=== PATIENT | female | born 1950 | race Caucasian/White ===

== ENCOUNTER → 2020-09-02 09:07 | Outpatient (BNVA) | payer MEDICARE, SELFPAY | PROVIDERS: PCP Internal Medicine; Visit Provider Obstetrics & Gynecology ==

== ENCOUNTER 2020-10-24 09:35 | Outpatient (REF) | payer MEDICARE, OTHER, SELFPAY ==
--- NOTE | ~2020-10-24 | MM_ITS ---
EXAMINATION: MM SCREENING DIGITAL BREAST TOMOSYNTHESIS, BILATERAL CLINICAL INFORMATION: Screening. Asymptomatic. The lifetime risk of breast cancer based on the Tyrer-Cuzick Model is 3%. COMPARISON: Outside mammography: 04/27/2019, 04/19/2018, 04/14/2017 ([place]). TECHNIQUE: Digital breast tomosynthesis is performed in both the craniocaudal and mediolateral oblique views along with computer-aided detection (CAD). Synthesized 2D images are generated from the tomosynthesis. FINDINGS: The breasts are heterogeneously dense, which may obscure small masses (ACR BI-RADS breast composition Category c). Parenchymal pattern is similar to prior outside exams. The breast tissue composition borders on extremely dense. There is no interval mass or developing density. No abnormal calcifications. The axilla and skin contours are unremarkable. The densities MM/MM tomosynthesis screening BI IMPRESSION: No mammographic evidence of malignancy. ASSESSMENT: BI-RADS 1: Negative RECOMMENDATION: Routine annual mammography screening. This patient's information was entered into a reminder system with a target due date for their next mammogram.
--- NOTE | ~2020-10-24 | MM_ITS ---
EXAMINATION: BONE DENSITOMETRY CLINICAL INDICATION: Asymptomatic menopausal state. COMPARISON: None (current study represents initial baseline exam). TECHNIQUE: Using a [employer] DXA System (software version: 13.1) manufactured by [employer], dual-energy x-ray absorptiometry was performed of the lumbar spine and left hip. The images are of good technical quality. Summary results are attached. FINDINGS: AP SPINE L1-L4: BMD 0.819 g/cm2, Z-score -0.8, T-score -3.0, osteoporosis. LEFT FEMUR, NECK: BMD 0.562 g/cm2, Z-score -1.4, T-score -3.4, osteoporosis. LEFT FEMUR, TOTAL: BMD 0.539 g/cm2, Z-score -1.9, T-score -3.7, osteoporosis. IDENTIFIED RISK FACTORS: Menopause. HISTORY OF FRACTURE: None listed. MEDICATIONS: Vitamin D. MM/XR DEXA axial skeleton IMPRESSION: 1. DIAGNOSIS: Osteoporosis based on the lowest T-score value of -3.7 in the femoral neck applying World Health Organization criteria. 2. 10-YEAR FRACTURE RISK PREDICTION, FRAX: Major osteoporotic fracture (clinical spine, forearm, hip or shoulder) 20.2%. Hip fracture 8.3%. 3. Treatment Recommendations: NOF guidelines recommend consideration for treatment in postmenopausal women and men age 50 and older presenting with the following: -A hip or vertebral (clinical or morphometric) fracture. -T-score less than or equal to -2.5 at the femoral neck or spine after appropriate evaluation to exclude secondary causes. -Low bone mass at the hip or spine and a 10-year fracture probability by FRAX of greater than or equal to 3% for hip fracture or greater than or equal to 20% for major osteoporotic fracture based on the [place] adapted WHO algorithm. 4. Other Recommendations: All treatment decisions require clinical judgment and consideration of individual patient factors, including patient preferences, comorbidities, previous drug use, risk factors not captured in the FRAX model (e.g. frailty, falls, vitamin D deficiency, increased bone turnover, interval significant decline in bone density) and possible under or overestimation of fracture risk by FRAX. Additional medical evaluation for secondary cause of low bone mineral density may be appropriate. FUTURE SCAN RECOMMENDATION: People with diagnosed cases of osteoporosis or at high risk for fracture should have regular bone mineral density tests. For patients eligible for Medicare, routine testing is allowed once every 2 years. The testing frequency can be increased to one year for patients who have rapidly progressing disease, those who are receiving or discontinuing medical therapy to restore bone mass, or have additional risk factors.
== END 2020-10-24 09:36 | disposition home or self-care (01) ==
LOC: HO.MAMMO 09:35
PROVIDERS: PCP Internal Medicine; Visit Provider Obstetrics & Gynecology
DX: Z13.820 Encounter for screening for osteoporosis (principal); Z78.0 Asymptomatic menopausal state; Z12.31 Encounter for screening mammogram for malignant neoplasm of breast
CPT/HCPCS: 77063; 77067; 77080

== ENCOUNTER → 2020-10-30 13:39 | Outpatient (BNVA) | payer MEDICARE, OTHER, SELFPAY | PROVIDERS: PCP Internal Medicine; Visit Provider Obstetrics & Gynecology | CPT/HCPCS: Q3014 ==

== ENCOUNTER 2021-02-11 07:50 | Outpatient (REF) | payer MEDICARE, OTHER, SELFPAY ==
[2021-02-11 12:13] LABS: Alanine Aminotransferase 29 U/L (0-31); Anion Gap 13 (12-20); Aspartate Amino Transferase 24 U/L (5-31); Blood Urea Nitrogen 19 mg/dL (9-16); Calcium 10.2 mg/dL (8.4-10.2); Carbon Dioxide 28 mmol/L (22-29); Chloride 105 mmol/L (96-108); Cholesterol 277 mg/dL; Estimated Glomerular Filt Rate > 60; Glucose Fasting 77 mg/dL (60-99); HDL Cholesterol 77 mg/dL; LDL Cholesterol Calculated 182 mg/dl; Sodium 142 mmol/L (135-145); Triglycerides 93 mg/dL
[2021-02-11 12:36] LABS: Vitamin D 25-OH Total 39.4 ng/mL (>30)
== END 2021-02-11 07:51 | disposition home or self-care (01) ==
LOC: HO.HMGCLDS 07:50
PROVIDERS: PCP Internal Medicine; Visit Provider Internal Medicine
DX: E78.5 Hyperlipidemia, unspecified (principal); I10 Essential (primary) hypertension; M81.0 Age-related osteoporosis without current pathological fracture; Z78.0 Asymptomatic menopausal state
CPT/HCPCS: 36415; 80048; 80061; 82306; 84450; 84460

== ENCOUNTER 2021-06-27 07:29 | Outpatient (REF) | payer MEDICARE, OTHER, SELFPAY ==
[2021-06-27 11:47] LABS: Alanine Aminotransferase 18 U/L (0-31); Aspartate Amino Transferase 21 U/L (5-31); Cholesterol 226 mg/dL; HDL Cholesterol 78 mg/dL; LDL Cholesterol Calculated 129 mg/dl; Triglycerides 97 mg/dL
== END 2021-06-27 07:30 | disposition home or self-care (01) ==
LOC: HO.HMGCLDS 07:29
PROVIDERS: Visit Provider Internal Medicine
DX: E78.5 Hyperlipidemia, unspecified (principal)
CPT/HCPCS: 36415; 80061; 84450; 84460

== ENCOUNTER → 2021-09-09 09:06 | Outpatient (BNVA) | payer MEDICARE, OTHER, SELFPAY | PROVIDERS: PCP Internal Medicine; Visit Provider Obstetrics & Gynecology | DX: Z01.411 Encounter for gynecological examination (general) (routine) with abnormal findings (principal); R32 Unspecified urinary incontinence; R10.2 Pelvic and perineal pain | CPT/HCPCS: 99212 ==

== ENCOUNTER 2021-10-27 11:56 | Outpatient (REF) | payer MEDICARE, OTHER, SELFPAY ==
--- NOTE | ~2021-10-27 | MM_ITS ---
EXAMINATION: MM SCREENING DIGITAL BREAST TOMOSYNTHESIS, BILATERAL CLINICAL INFORMATION: Screening. Asymptomatic. The lifetime risk of breast cancer based on the Tyrer-Cuzick Model is 3%. COMPARISON: Mammography: October 24, 2020 and studies dating back to April 14, 2017 TECHNIQUE: Digital breast tomosynthesis is performed in both the craniocaudal and mediolateral oblique views along with computer-aided detection (CAD). Synthesized 2D images are generated from the tomosynthesis. FINDINGS: The breasts are extremely dense, which lowers the sensitivity of mammography (ACR BI-RADS breast composition Category d). There are no significant masses, abnormal calcifications, or other abnormalities. MM/MM tomosynthesis screening BI IMPRESSION: No mammographic evidence of malignancy. ASSESSMENT: BI-RADS 1: Negative RECOMMENDATION: Routine annual mammography screening. This patient's information was entered into a reminder system with a target due date for their next mammogram.
== END 2021-10-27 11:57 | disposition home or self-care (01) ==
LOC: HO.MAMMO 11:56
PROVIDERS: PCP Internal Medicine; Visit Provider Obstetrics & Gynecology
DX: Z12.31 Encounter for screening mammogram for malignant neoplasm of breast (principal)
CPT/HCPCS: 77063; 77067

== ENCOUNTER 2022-05-04 07:47 | Outpatient (REF) | payer MEDICARE, OTHER, SELFPAY ==
[2022-05-04 12:46] LABS: Alanine Aminotransferase 29 U/L (0-31); Anion Gap 11 (12-20); Aspartate Amino Transferase 26 U/L (5-31); Blood Urea Nitrogen 23 mg/dL (9-16); Calcium 10.1 mg/dL (8.4-10.2); Carbon Dioxide 30 mmol/L (22-29); Chloride 105 mmol/L (96-108); Cholesterol 212 mg/dL; Estimated Glomerular Filt Rate > 60; Glucose Fasting 88 mg/dL (60-99); HDL Cholesterol 78 mg/dL; LDL Cholesterol Calculated 118 mg/dl; Sodium 142 mmol/L (135-145); Triglycerides 83 mg/dL; Vitamin D 25-OH Total 35.6 ng/mL (>30)
== END 2022-05-04 07:48 | disposition home or self-care (01) ==
LOC: HO.HMGCLDS 07:47
PROVIDERS: PCP Internal Medicine; Visit Provider Internal Medicine
DX: E78.5 Hyperlipidemia, unspecified (principal); M81.0 Age-related osteoporosis without current pathological fracture; Z78.0 Asymptomatic menopausal state
CPT/HCPCS: 36415; 80048; 80061; 82306; 84450; 84460

== ENCOUNTER 2022-09-14 09:12 | Outpatient (AMB) | payer MEDICARE, OTHER, SELFPAY ==
--- NOTE | 2022-09-14 09:14 | MHC.OFFVIS ---
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 No complaints. Last Pap/HPV was few years ago, no history of abnormal Pap smear last 25 years Last Mammogram was BI-RADS 1 in 10/27 Last Colonoscopy was in 01/21 Last DEXA scan showed osteoporosis in 10/26 [facility] Medical History (Updated 09/14/22 @ 10:04 by Vidal Allred MD) Arthralgia of both hands Dyslipidemia Plantar fasciitis, bilateral Surgical History H/O: knee surgery Family History Brother WPW (Fgxjt-Bdvtoqzwr-Xxphe syndrome) Sister Atrial fibrillation Social History Alcohol intake: current Alcohol intake frequency: holidays/special occasions only Patient Tobacco Use Status: Former Tobacco user service: No Current occupational status: retired Female Reproductive History Menstrual Date of last pap smear: 10/27/21 Date of Mammogram: 10/24/20 Review of Systems Const All systems reviewed & are unremarkable except as noted in HPI and below Card Reports as per HPI Resp Reports as per HPI GI Reports as per HPI and Reports no additional complaints Reports as per HPI Physical Exam Const General: cooperative, healthy appearing and comfortable Chest Chest palpation & inspection: normal inspection of the chest and normal palpation of entire chest wall Breast/axilla inspection: normal inspection of the breasts and normal inspection of the axillae Breast/axilla palpation: normal palpation of the breasts, normal palpation of the axillae and no axillary lymphadenopathy Resp Effort & Inspection: normal respiratory effort Auscultation: clear to auscultation bilaterally Percussion: percussion normal Cardio Palpation: normal PMI Rate: regular rate Rhythm: regular rhythm Heart sounds: no murmurs and no rubs Peripheral pulses: Peripheral pulses 2+ throughout GI Inspection: Yes normal to inspection Palpation (GI): Soft to palpation, nontender, no guarding, not rigid and No hepatosplenomegaly present Percussion: Yes normal to percussion Auscultation: normal bowel sounds Rectal Exam - Female: deferred General: Yes bladder normal to palpation External Female Exam: No lesion Speculum Exam - Vagina: normal appearance of the vagina, normal palpation, normal vaginal discharge and not erythematous Speculum Exam - Cervix: normal appearance of the cervix and normal palpation Bimanual exam- vagina & uterus: normal bimanual exam, normal palpation, uterine size normal, bladder normal to palpation, consistency normal and normal palpation Bimanual Exam- Adnexa, other: Other (Right Adnexal fullness) Assessment & Plan Assessment & Plan (1) Well woman exam: Code(s): Z01.419 - Encounter for gynecological examination (general) (routine) without abnormal findings Plan: Co testing not indicated since the patient 's age is above 65 with no history of abnormal Pap smears last 25 years. Counseled the patient about the recommended dietary allowance of 1200 mg of Calcium & 800 IU of vitamin D. Mammogram ordered, the patient is up-to-date with her screening colonoscopy done. Will order DEXA scan . The patient was instructed to perform monthly self-breast exams and to schedule a 2 week DEXA scan follow-up appointment and an annual exam in a year; all questions answered and the patient verbalized understanding. (2) Adnexal fullness: Code(s): N94.9 - Unspecified condition associated with female genital organs and menstrual cycle Plan: Discussed with the patient the finding on pelvic exam showing adnexal fullness, will order pelvic ultrasound, instructions given the patient to schedule an ultrasound follow-up appointment. All questions answered, the patient verbalized understanding. Orders: Orders XR DEXA axial skeleton Today Z78.0 - Asymptomatic menopausal state MM screening mammo BI Today Z12.31 - Encounter for screening mammogram for malignant neoplasm of breast US pelvic and transvaginal Today N94.9 - Unspecified condition associated with female genital organs and menstrual cycle Coding Level of Care Code Est Pt Prev Care >65y(84225) Diagnoses Well woman exam Z01.419 Adnexal fullness N94.9
[2022-09-14 10:05] VITALS: BP 110/70; BMI 20.4
== END 2022-09-14 14:53 | disposition home or self-care (01) ==
LOC: HO.HWS 09:12
PROVIDERS: PCP Internal Medicine; Visit Provider Obstetrics & Gynecology
DX: Z01.419 Encounter for gynecological examination (general) (routine) without abnormal findings (principal); N94.9 Unspecified condition associated with female genital organs and menstrual cycle
CPT/HCPCS: G0101

== ENCOUNTER → 2022-09-14 09:12 | Outpatient (BNVA) | payer MEDICARE, OTHER, SELFPAY | PROVIDERS: PCP Internal Medicine; Visit Provider Obstetrics & Gynecology | DX: Z13.89 Encounter for screening for other disorder (principal) | CPT/HCPCS: G0101 ==

== ENCOUNTER 2022-09-16 12:41 | Outpatient (REF) | payer MEDICARE, OTHER, SELFPAY ==
--- NOTE | ~2022-09-16 | US_ITS ---
EXAMINATION: US PELVIS COMPLETE CLINICAL INFORMATION: Adnexal fullness COMPARISON: Pelvic ultrasound 06/28/2019 TECHNIQUE: Transabdominal and transvaginal imaging was performed. FINDINGS: The uterus is of normal size and echogenicity measuring 5.1 x 3.8 x 4.2 cm. A regular homogeneous endometrium is identified measuring 0.3 cm. Trace fluid is seen within the endometrial canal. A 3.2 x 2.5 x 3.5 cm anterior body fundal myoma, previously 2.1 x 2.1 x 2.3 cm. Ovaries were not identified sonographically. No adnexal mass. There is trace simple pelvic free fluid. US/US pelvic and transvaginal IMPRESSION: 1. Ovaries were not identified sonographically. No adnexal mass. 2. Trace fluid is seen within the endometrial canal. 3. A 3.5 cm anterior body fundal myoma, slightly increased in size from prior. 4. Trace simple free fluid in the pelvis.
== END 2022-09-16 12:42 | disposition home or self-care (01) ==
LOC: HO.HMGCX 12:41
PROVIDERS: PCP Internal Medicine; Visit Provider Obstetrics & Gynecology
DX: N94.9 Unspecified condition associated with female genital organs and menstrual cycle (principal)
CPT/HCPCS: 76830; 76856

== ENCOUNTER 2022-10-29 08:26 | Outpatient (REF) | payer MEDICARE, OTHER, SELFPAY ==
--- NOTE | ~2022-10-29 | MM_ITS ---
EXAMINATION: BONE DENSITOMETRY CLINICAL INDICATION: Asymptomatic. COMPARISON: Baseline BD dated 10/24/2020. TECHNIQUE: Using a [employer] DXA System (software version: 13.1) manufactured by [employer], dual-energy x-ray absorptiometry was performed of the lumbar spine and left hip. The images are of good technical quality. Summary results are attached. FINDINGS: LEFT FEMUR, NECK: Current: BMD 0.576 g/cm2, Z-score -1.2, T-score -3.3, osteoporosis. Baseline: BMD 0.562 g/cm2. LEFT FEMUR, TOTAL: Current: BMD 0.515 g/cm2, Z-score -2.0, T-score -3.9, osteoporosis, 4.5% decrease from baseline (<5% change is not significant). Baseline: BMD 0.539 g/cm2. AP SPINE L1-L4: Current: BMD 0.849 g/cm2, Z-score -0.5, T-score -2.8, osteoporosis, 3.7% increase from baseline (<5% change is not significant). Baseline: BMD 0.819 g/cm2. IDENTIFIED RISK FACTORS: Menopause, height loss, osteoporosis. HISTORY OF FRACTURE: None listed. MEDICATIONS: Calcium supplements or multivitamin, vitamin D, bisphosphonate. MM/XR DEXA axial skeleton IMPRESSION: 1. DIAGNOSIS: Osteoporosis based on the lowest T-score value of -3.9 in the total femur applying World Health Organization criteria. 2. 10-YEAR FRACTURE RISK PREDICTION, FRAX: According to the guidelines, FRAX calculation should only be performed on patients in the osteopenia bone density category. Therefore, FRAX was not performed on this patient. 3. Treatment Recommendations: NOF guidelines recommend consideration for treatment in postmenopausal women and men age 50 and older presenting with the following: -A hip or vertebral (clinical or morphometric) fracture. -T-score less than or equal to -2.5 at the femoral neck or spine after appropriate evaluation to exclude secondary causes. -Low bone mass at the hip or spine and a 10-year fracture probability by FRAX of greater than or equal to 3% for hip fracture or greater than or equal to 20% for major osteoporotic fracture based on the [place] adapted WHO algorithm. 4. Other Recommendations: All treatment decisions require clinical judgment and consideration of individual patient factors, including patient preferences, comorbidities, previous drug use, risk factors not captured in the FRAX model (e.g. frailty, falls, vitamin D deficiency, increased bone turnover, interval significant decline in bone density) and possible under or overestimation of fracture risk by FRAX. Additional medical evaluation for secondary cause of low bone mineral density may be appropriate. FUTURE SCAN RECOMMENDATION: People with diagnosed cases of osteoporosis or at high risk for fracture should have regular bone mineral density tests. For patients eligible for Medicare, routine testing is allowed once every 2 years. The testing frequency can be increased to one year for patients who have rapidly progressing disease, those who are receiving or discontinuing medical therapy to restore bone mass, or have additional risk factors.
== END 2022-10-29 08:27 | disposition home or self-care (01) ==
LOC: HO.MAMMO 08:26
PROVIDERS: PCP Internal Medicine; Visit Provider Obstetrics & Gynecology
DX: Z12.31 Encounter for screening mammogram for malignant neoplasm of breast (principal); Z13.820 Encounter for screening for osteoporosis; Z78.0 Asymptomatic menopausal state
CPT/HCPCS: 77063; 77067; 77080

== ENCOUNTER → 2022-10-29 09:00 | Outpatient (BNV) | payer MEDICARE, OTHER, SELFPAY | PROVIDERS: PCP Internal Medicine; Visit Provider Radiology Diagnostic Radiology | DX: Z12.31 Encounter for screening mammogram for malignant neoplasm of breast (principal) | CPT/HCPCS: 77063; 77067; 77080 ==

== ENCOUNTER 2022-11-10 09:46 | Outpatient (AMB) | payer MEDICARE, OTHER, SELFPAY ==
[2022-11-10 09:55] VITALS: BP 114/68; BMI 20.6
--- NOTE | 2022-11-10 09:55 | MHC.OFFVIS ---
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 DEXA scan showed the following: LEFT FEMUR, NECK: Current: BMD 0.576 g/cm2, Z-score -1.2, T-score -3.3, osteoporosis. Baseline: BMD 0.562 g/cm2. LEFT FEMUR, TOTAL: Current: BMD 0.515 g/cm2, Z-score -2.0, T-score -3.9, osteoporosis, 4.5% decrease from baseline (<5% change is not significant). Baseline: BMD 0.539 g/cm2. AP SPINE L1-L4: Current: BMD 0.849 g/cm2, Z-score -0.5, T-score -2.8, osteoporosis, 3.7% increase from baseline (<5% change is not significant). Baseline: BMD 0.819 g/cm2. Pelvic ultrasound showed the following: The uterus is of normal size and echogenicity measuring 5.1 x 3.8 x 4.2 cm. A regular homogeneous endometrium is identified measuring 0.3 cm. Trace fluid is seen within the endometrial canal. A 3.2 x 2.5 x 3.5 cm anterior body fundal myoma, previously 2.1 x 2.1 x 2.3 cm. Ovaries were not identified sonographically. No adnexal mass. There is trace simple pelvic free fluid. [facility] Medical History Arthralgia of both hands Dyslipidemia Plantar fasciitis, bilateral Surgical History H/O: knee surgery Family History Brother WPW (Zbuoi-Unfxyejot-Mnrmd syndrome) Sister Atrial fibrillation Social History Alcohol intake: current Alcohol intake frequency: holidays/special occasions only Patient Tobacco Use Status: Former Tobacco user Patient : No service: No Current occupational status: retired Female Reproductive History Menstrual Date of Mammogram: 10/29/22 Date of last Bone Density Screenin10/29/22 Review of Systems Const All systems reviewed & are unremarkable except as noted in HPI and below Reports as per HPI and Reports no additional complaints GI Reports no additional complaints Reports no additional complaints Physical Exam Vital Signs: Last Vital Signs BP 114/68 11/10/22 09:55 BMI result Body Mass Index 20.6 Assessment & Plan Assessment & Plan (1) Osteoporosis: Code(s): M81.0 - Age-related osteoporosis without current pathological fracture Plan: Discussed with the patient results DEXA scan no clinically significant change (more than 5%) in bone mineral density, and the severity of the osteoporosis will refer to Rheumatology discussed different options of treatment other than alendronate. All questions answered, the patient verbalized understanding (2) Uterine myoma: Comment: Enlarging in menopause Code(s): D25.9 - Leiomyoma of uterus, unspecified Plan: Discussed with the patient the finding on ultrasound showing enlarged myoma from 2019 from 2.3-3.5 cm in largest diameter. Discussed with the patient the risk of Naveen sarcoma and options of treatment including expectant management versus surgical management, or pros and cons, risks and benefits of each were discussed with the patient. Will refer to Gyne Onc for further management and all questions answered, the patient verbalized understand Orders: Referrals Gynecologic Oncology Referral D25.9 - Leiomyoma of uterus, unspecified Rheumatology Referral M81.0 - Age-related osteoporosis without current pathological fracture Coding Level of Care Code Est Pt Level 3 (33876) Diagnoses Osteoporosis M81.0 Uterine myoma D25.9
== END 2022-11-10 10:48 | disposition home or self-care (01) ==
PROVIDERS: PCP Internal Medicine; Visit Provider Obstetrics & Gynecology
DX: M81.0 Age-related osteoporosis without current pathological fracture (principal); D25.9 Leiomyoma of uterus, unspecified
CPT/HCPCS: 99213

== ENCOUNTER → 2022-11-10 09:46 | Outpatient (BNVA) | payer MEDICARE, OTHER, SELFPAY | PROVIDERS: PCP Internal Medicine; Visit Provider Obstetrics & Gynecology | DX: M81.0 Age-related osteoporosis without current pathological fracture (principal); D25.9 Leiomyoma of uterus, unspecified | CPT/HCPCS: 99212 ==

== ENCOUNTER 2022-11-20 07:45 | Outpatient (REF) | payer MEDICARE, OTHER, SELFPAY ==
[2022-11-20 13:54] LABS: Alanine Aminotransferase 15 U/L (0-31); Aspartate Amino Transferase 20 U/L (5-31); Cholesterol 207 mg/dL (<200); HDL Cholesterol 82 mg/dL (>40); LDL Cholesterol Calculated 113 mg/dL (<100); Triglycerides 60 mg/dL (<150)
[2022-11-20 14:15] LABS: Vitamin D 25-OH Total 44.9 ng/mL (>30)
== END 2022-11-20 07:46 | disposition home or self-care (01) ==
LOC: HO.HMGCLDS 07:45
PROVIDERS: PCP Internal Medicine; Visit Provider Internal Medicine
DX: M81.0 Age-related osteoporosis without current pathological fracture (principal); N95.9 Unspecified menopausal and perimenopausal disorder; E78.5 Hyperlipidemia, unspecified
CPT/HCPCS: 36415; 80061; 82306; 84450; 84460

== ENCOUNTER 2022-12-22 11:28 | Outpatient (AMB) | payer MEDICARE, OTHER, SELFPAY ==
[2022-12-22 11:53] VITALS: BP 124/80; PULSE 50; O2SAT 95; BMI 20.8
--- NOTE | 2022-12-22 11:53 | MHC.PC.OV ---
Vital Signs 12/22/22 11:53 Height 4 ft 11 in Weight 103 lb BMI 20.8 BP 124/80 Blood Pressure Location Lt brachial Position Sitting Pulse 50 Pulse Source Pulse Oximeter Pulse Oximetry (%) 95 Oxygen Delivery Method Room Air Intake Visit Reasons: Possible Shingles Intake Note: Pt is here today c/o blisters Rt side of inner groin noticed it on x6days ago Allergies penicillin V Allergy (Unknown, Verified 12/23/22 02:22) diarrhea Medication List - Last Reconciled 12/23/22 by Cassia Sutton MD acetaminophen ER (Tylenol Arthritis Pain) 650 mg PO Q12H alendronate (Fosamax) 70 mg PO QWEEK calcium carbonate (Calcium) 600 mg PO DAILY cholecalciferol (vitamin D3) 25 mcg PO DAILY docusate sodium 100 mg PO DAILY rosuvastatin 5 mg PO 2XW 90 days valacyclovir 1,000 mg PO Q12H 10 days [verapamil Hcl 15% topical BID] Tobacco use date assessed: 12/22/22 Fall risk assessment: No Falls in past year Last assessed Fall Risk: 12/22/22 Dental Screening Dental Screen Date: 12/22/22 Did you have a dental visit in the last 12 months?: Yes Did you have a dental problem in the last 6 months where you did not have access to dental care?: No Was dental information given to patient?: Patient has dentist HPI Possible Shingles HPI Details 72-year-old lady here today complaining of noticing blisters on inner aspect of left groin, approximately 6 days ago. Denies any burning, no itching, no redness over area, no discharge coming from lesions. She states that the lesions now are almost gone. She has been feeling well otherwise with no other complaints at present [facility] Medical History Arthralgia of both hands Dyslipidemia Plantar fasciitis, bilateral Surgical History H/O: knee surgery Family History Brother WPW (Mxuih-Vqldwpsrr-Wbxhf syndrome) Sister Atrial fibrillation Social History Alcohol intake: current Alcohol intake frequency: holidays/special occasions only Patient Tobacco Use Status: Former Tobacco user e-Cigarette/Vaping Use: Never Used service: No Current occupational status: retired Cognitive needs: No Hearing needs: No Vision needs: Yes Questionnaire AUDIT C Alcohol Use Questionnaire (AUDIT-C) 1. How often do you have a drink containing alcohol?: 2-4 times a month 2. How many drinks containing alcohol do you have on a typical day when you are drinking?: 1 or 2 3. How often do you have six or more drinks on one occasion?: Never Total Score: 2 BHAVYA-7 AMB Questionnaire BHAVYA-7 Feeling nervous, anxious, or on edge: 1 = Several days Not being able to stop or control worryin = Several days Worrying too much about different things: 0 = Not at all Trouble relaxin = Several days Being so restless that it is hard to sit still: 0 = Not at all Becoming easily annoyed or irritable: 0 = Not at all Feeling afraid as if something awful might happen: 1 = Several days Total BHAVYA-7 score (0-4 normal; 5-9 mild; 10-14 moderate; 15-21 severe): 4 Source: Developed by Drs. Werner Shahid, Blanca Mantilla, Tolu Ambrocio and colleagues, with an educational maria del carmen from [employer]. Review of Systems Const All systems reviewed & are unremarkable except as noted in HPI and below Physical exam (Primary Care) Vital Signs: Last Vital Signs Pulse 50 12/22/22 11:53 BP 124/80 12/22/22 11:53 Pulse Ox 95 12/22/22 11:53 Oxygen Delivery Method Room Air 12/22/22 11:53 BMI result Body Mass Index 20.8 Tobacco/Smoking Status: Tobacco use Status Tobacco use date assessed 12/22/22 12/22/22 11:56 Patient Tobacco Use Status Former Tobacco user 12/22/22 11:56 e-Cigarette/Vaping Use Never Used 12/22/22 11:56 Const Other: Alert oriented x3, no acute distress noted, ambulatory normal gait Other: No inguinal lymphadenopathy palpated Skin Lesions: lesion noted (2 raised, slightly dry lesions on inner aspect of left thigh, nontender) Assessment and Plan Assessment & Plan (1) Lesion of female perineum: Code(s): N90.9 - Noninflammatory disorder of vulva and perineum, unspecified Plan: Empirically treated for possible genital herpes, with valacyclovir 1000 mg per tab 1 tablet every 12 hours for 10 days. Patient declined getting tested for herpes simplex air Medications: New valacyclovir 1,000 mg PO Q12H 20 tabs 0RF 10 days Coding Level of Care Code Est Pt Level 3 (09158) Diagnoses Lesion of female perineum N90.9
== END 2022-12-22 12:16 | disposition home or self-care (01) ==
PROVIDERS: PCP Internal Medicine; Visit Provider Internal Medicine
DX: N90.9 Noninflammatory disorder of vulva and perineum, unspecified (principal)
CPT/HCPCS: 99213

== ENCOUNTER 2023-02-11 12:43 | Outpatient (AMB) | payer MEDICARE, OTHER, SELFPAY ==
[2023-02-11 12:59] VITALS: BP 100/70; PULSE 62; TEMP 36.1; O2SAT 98; BMI 20.6
--- NOTE | 2023-02-11 12:59 | MHC.OFFVIS ---
Intake Vital Signs 02/11/23 12:59 Height 4 ft 11 in Weight 101 lb 13.657 oz BMI 20.6 BP 100/70 Blood Pressure Location Lt brachial Position Sitting Pulse 62 Pulse Source Pulse Oximeter Temp 97 F Temp Source Skin Pulse Oximetry (%) 98 Oxygen Delivery Method Room Air Intake Visit Reasons: Osteoporosis Intake Note: New pt presents today for Osteoporosis consult, at the request of Dr Allred. No prior cable puller. 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 She was diagnosed with osteoporosis in 2020 and was started on alendronate. Her most recent DEXA scan shows drop in her bone density. Patient states that she has been having bilateral hand pain from arthritis for a few years now. She takes Tylenol which provides some relief. She reached menopause at age 54. Stated that her mother had osteoporosis and was on treatment for it. She denies recurrent falls. [facility] Medical History (Updated 02/11/23 @ 13:32 by Jalil Manning MD) Dyslipidemia Plantar fasciitis, bilateral Surgical History H/O: knee surgery Family History Brother WPW (Apjny-Emjxamkrl-Tcwjo syndrome) Sister Atrial fibrillation Arthritis Mother Arthritis Social History Alcohol intake: current Alcohol intake frequency: holidays/special occasions only Patient Tobacco Use Status: Former Tobacco user e-Cigarette/Vaping Use: Never Used service: No Current occupational status: retired Cognitive needs: No Hearing needs: No Vision needs: Yes Female Reproductive History Menstrual Total pregnancies: 2 Review of Systems Musc Reports arthralgias and Reports stiffness Psych Reports abnormal sleep pattern and Reports anxiety Physical Exam Vital Signs: Last Vital Signs Temp 97 F 02/11/23 12:59 Pulse 62 02/11/23 12:59 BP 100/70 02/11/23 12:59 Pulse Ox 98 02/11/23 12:59 Oxygen Delivery Method Room Air 02/11/23 12:59 BMI result Body Mass Index 20.6 Const General: cooperative, healthy appearing, comfortable and no acute distress Nutritional Appearance: average body habitus Orientation/consciousness: patient oriented x3 Limitations: no limitations HEENT Other: No dental caries Head: Yes normocephalic and Yes atraumatic Mouth: moist mucous membranes Cardio Rate: regular rate Rhythm: regular rhythm GI Inspection: No distended Palpation (GI): Soft to palpation and nontender Skin General skin exam: no rashes or lesions noted Neuro General: patient oriented x3 Extrem Other: Osteoarthritic changes of both hands with no active synovitis Bilateral 1st CMC joint tenderness Results Reviewed Results Reviewed: COMPARISON: Baseline BD dated 10/24/2020. TECHNIQUE: Using a [employer] Heart DXA System (software version: 13.1) manufactured by [employer], dual-energy x-ray absorptiometry was performed of the lumbar spine and left hip. The images are of good technical quality. Summary results are attached. FINDINGS: LEFT FEMUR, NECK: Current: BMD 0.576 g/cm2, Z-score -1.2, T-score -3.3, osteoporosis. Baseline: BMD 0.562 g/cm2. LEFT FEMUR, TOTAL: Current: BMD 0.515 g/cm2, Z-score -2.0, T-score -3.9, osteoporosis, 4.5% decrease from baseline (<5% change is not significant). Baseline: BMD 0.539 g/cm2. AP SPINE L1-L4: Current: BMD 0.849 g/cm2, Z-score -0.5, T-score -2.8, osteoporosis, 3.7% increase from baseline (<5% change is not significant). Baseline: BMD 0.819 g/cm2. IDENTIFIED RISK FACTORS: Menopause, height loss, osteoporosis. HISTORY OF FRACTURE: None listed. MEDICATIONS: Calcium supplements or multivitamin, vitamin D, bisphosphonate. MM/XR DEXA axial skeleton IMPRESSION: 1. DIAGNOSIS: Osteoporosis based on the lowest T-score value of -3.9 in the total femur applying World Health Organization criteria. 2. 10-YEAR FRACTURE RISK PREDICTION, FRAX: According to the guidelines, FRAX calculation should only be performed on patients in the osteopenia bone density category. Therefore, FRAX was not performed on this patient. Assessment & Plan Assessment & Plan (1) Osteoporosis: Code(s): M81.0 - Age-related osteoporosis without current pathological fracture Qualifiers: Osteoporosis type: age-related Presence of current pathological fracture: without current pathological fracture Qualified Code(s): M81.0 - Age-related osteoporosis without current pathological fracture Plan: 72-year-old female referred for osteoporosis management. She was diagnosed with osteoporosis in 2020 and started on Fosamax. Repeat DEXA 10/2022 showed worsening bone density. Her T-score is -3.9 in the left hip which is considered severe osteoporosis. Will need to advance her anti resorptive therapy. Discussed risks and benefits of Prolia. Patient agreed to proceed. Start Prolia 60 mg subcutaneously Q 6 months We discussed other measures for osteoporosis management. Patient is on vitamin-D 1000 units daily and her vitamin-D level is at goal Discussed weight-bearing exercises and avoiding falls. Follow-up in 6 months. Check labs before next visit (2) Osteoarthritis of hands, bilateral: Code(s): M19.041 - Primary osteoarthritis, right hand; M19.042 - Primary osteoarthritis, left hand Qualifiers: Osteoarthritis type: primary Qualified Code(s): M19.041 - Primary osteoarthritis, right hand; M19.042 - Primary osteoarthritis, left hand Plan: Try using Voltaren gel 4 times a day on affected joints Plan I spent 47 minutes reviewing patient's chart, evaluating patient, ordering diagnostic workup, counseling patient and documenting in the chart Orders: Orders Complete Blood Count Auto Diff 6 Months M81.0 - Age-related osteoporosis without current pathological fracture Vitamin D 25-OH (D2 and D3) 6 Months E55.9 - Vitamin D deficiency, unspecified Comprehensive Met. Panel 6 Months M81.0 - Age-related osteoporosis without current pathological fracture Coding Level of Care Code New Pt Level 4 (76233) Diagnoses Age-related osteoporosis without current pathological fracture M81.0 Osteoporosis type: age-related Presence of current pathological fracture: without current pathological fracture Primary osteoarthritis of both hands M19.041; M19.042 Osteoarthritis type: primary
== END 2023-02-11 13:27 | disposition home or self-care (01) ==
PROVIDERS: PCP Internal Medicine; Visit Provider Student in an Organized Health Care Education/Training Program
DX: M81.0 Age-related osteoporosis without current pathological fracture (principal); M19.041 Primary osteoarthritis, right hand; M19.042 Primary osteoarthritis, left hand
CPT/HCPCS: 99204

== ENCOUNTER → 2023-02-11 12:43 | Outpatient (BNVA) | payer MEDICARE, OTHER, SELFPAY | PROVIDERS: PCP Internal Medicine; Visit Provider Student in an Organized Health Care Education/Training Program | DX: M81.0 Age-related osteoporosis without current pathological fracture (principal); M19.041 Primary osteoarthritis, right hand; M19.042 Primary osteoarthritis, left hand | CPT/HCPCS: 99202 ==

== ENCOUNTER 2023-02-16 09:58 | Outpatient (AMB) | payer MEDICARE, OTHER, SELFPAY ==
--- NOTE | 2023-02-16 11:45 | AM.OFFVISNUR ---
Intake Intake Visit Reasons: prolia Allergies penicillin V Allergy (Unknown, Verified 02/11/23 12:59) diarrhea Nursing Note Patient here for first Prolia injection. Patient received all information regarding possible side effects with Prolia. Patient was provided with information sheet for review. Patient gave consent to receive Prolia and I administered on right upper arm. Patient tolerated injection well. 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
== END 2023-02-16 11:21 | disposition home or self-care (01) ==
PROVIDERS: PCP Internal Medicine; Visit Provider Student in an Organized Health Care Education/Training Program
DX: M81.0 Age-related osteoporosis without current pathological fracture (principal)

== ENCOUNTER → 2023-02-16 09:58 | Outpatient (BNVA) | payer MEDICARE, OTHER, SELFPAY | PROVIDERS: PCP Internal Medicine; Visit Provider Student in an Organized Health Care Education/Training Program | DX: M81.0 Age-related osteoporosis without current pathological fracture (principal) | CPT/HCPCS: 96372; J0897 ==

== ENCOUNTER 2023-05-17 08:05 | Outpatient (AMB) | payer MEDICARE, OTHER, SELFPAY ==
[2023-05-17 08:31] VITALS: BP 120/72; PULSE 75; O2SAT 97; BMI 21.0
--- NOTE | 2023-05-17 08:31 | AM.OFFVISMDC ---
Intake Vital Signs 05/17/23 08:31 Height 4 ft 11 in Weight 104 lb BMI 21.0 BP 120/72 Blood Pressure Location Lt brachial Position Sitting Pulse 75 Pulse Source Pulse Oximeter Pulse Oximetry (%) 97 Oxygen Delivery Method Room Air Intake Visit Reasons: SWV G0439 Intake Note: Pt is here today for her SWV: Mammogram 10/29/22: bone density scan 10/29/22: Allergies penicillin V Allergy (Unknown, Verified 08/20/23 12:46) diarrhea Medication List - Last Reconciled 05/17/23 by Cassia Sutton MD acetaminophen ER (Tylenol Arthritis Pain) 650 mg PO Q12H cholecalciferol (vitamin D3) 25 mcg PO DAILY denosumab (Prolia) 60 mg subcut [id number] docusate sodium 100 mg PO DAILY rosuvastatin 5 mg PO 2XW 90 days [verapamil Hcl 15% topical BID] HPI SWV G0439 HPI Details SWV ? 73 year old lady with history of osteoporosis, currently started on Prolia, has hyperlipidemia, presents for her subsequent Annual Wellness Visit.? She is up-to-date with her screening mammogram, bone density scan, and colonoscopy, latter done by Dr. Romano last 2015 with normal findings, not due again until 2025. She sees Dr. Allred for her routine pelvic exam, no longer gets cervical cancer screening. She has been referred by Dr. Allred you to Dr. Burton for a fibroid tumor in her uterus She is up-to-date with her lipid panel screening, done 11/20/2022 with normal findings, fasting sugar was checked 05/04/2022 with normal findings. She is up-to-date with her vaccines, does not want to get the COVID booster anymore ? Medical / Social History Reviewed? Past Medical History ?Yes . ? [place] of Care / Care Team list updated ?Yes . ? Surgical/Hospitalization History ?Yes . ? Current Medications (including OTC and supplements) ?Yes . ? Family History ?Yes . ? Tobacco Control form ?Yes . ? AUDIT-C (Alcohol use) form ?Yes . ? Illicit drug use in Social History ?Yes . ? Current diagnosis of depression? ?No ? Appropriate PHQ2/PHQ9 completed ?Yes . ? Data entered by ?Portfolio Strategist and reviewed by provider ? Fall Risk ? Fall History? Have you had any falls with injury in the past year? ?No . ? Have you had two or more falls in the past year? ?No . ? Fall Risk Assessment: ?No falls in the past year . ? HRA filled out by the patient, reviewed by Provider and scanned. ?SWV ? Balance? Romberg ?Yes . ? Tandem walk ?Yes . ? Walk and Turn ?Yes . ? Rise from sit to stand ?Yes . ?Vision? Corrective lens ?Yes ? Vision screen ? goes to the [employer] [facility], just wears reading glasses ?Hearing? Whisper test ?pass . ?Written Plan?Completed. See Patient Documents.? [facility] Medical History Dyslipidemia Plantar fasciitis, bilateral Surgical History H/O: knee surgery Family History Brother WPW (Otmyd-Mtdqgzikz-Czdxh syndrome) Sister Atrial fibrillation Arthritis Mother Arthritis Social History Alcohol intake: current Alcohol intake frequency: holidays/special occasions only Patient Tobacco Use Status: Former Tobacco user e-Cigarette/Vaping Use: Never Used service: No Current occupational status: retired Cognitive needs: No Hearing needs: No Vision needs: Yes Questionnaire Medicare Wellness Checkup [age] What gender do you identify with?: female During the past 4 weeks, how much have you been bothered by emotional problems such as feeling anxious, depressed, irritable, sad or downhearted, and blue?: not at all During the past 4 weeks, has your physical & emotional health limited your social activities with family, friends, neighbors, or groups?: not at all During the past 4 weeks, how much bodily pain have you generally had?: very mild pain During the past 4 weeks, was someone available to help you if you needed & wanted help?: yes, as much as I wanted During the past 4 weeks, what was the hardest physical activity you could do for at least 2 minutes?: moderate Can you get to places out of walking distance without help? (For eg., can you travel alone on buses, taxis or drive your car?): Yes Can you go shopping for groceries or clothes without someone's help?: Yes Can you prepare your own meals?: Yes Can you do your housework without help?: Yes Because of any health problems, do you need the help of another person with your personal care needs such as eating, bathing, dressing or getting around the house?: No Can you handle your own money without help?: Yes During the past 4 weeks, how would you rate your health in general?: very good During the past 4 weeks how have things been going for you?: very well; could hardly better Are you having difficulties driving your car?: no Do you always fasten your seat belt when you are in a car?: yes, usually During past 4 weeks, have you been bothered by the following: never: Falling or dizzy when standing up, Sexual problems?, Trouble eating well?, Teeth or denture problems?, Problems using the telephone? and Tiredness or fatigue? Have you fallen 2 or more times in the past year?: No Are you afraid of falling?: Yes Are you a smoker?: no During the past 4 weeks, how many drinks of wine, beer, or other alcoholic beverages did you have?: 1 drink or less per week Do you exercise for about 20 minutes 3 or more times a week?: no, I usually do not exercise this much Have you been given information to help with the following?: no: Hazards in your house that might hurt you? and no: Keeping track of your medications? How often do you have trouble taking medicines the way you have been told to take them?: I always take medicine as prescribed How confident are you that you can control & manage most of your health problems?: very confident What is your race?: White Mini Mental State Exam (MMSE) Orientation What is the (year) (season) (date) (day) (month)?: year (2023), season (Winter), date (05/17/2023), day (Wednesday) and month (May) Where are we (state) (county) (town or city) (hospital) (floor)?: state ([place]), [facility]), town or city ([place]) and hospital/clinic ([facility]) Score Score: 9 Activity of Daily Living Bathing - sponge bath, tub bath or shower: receives no assistance (gets in/out by self, if usual bathing means Dressing - getting clothes from closets & drawers, including inner/outer garments & fasteners.: gets clothes & gets completely dressed without help Toileting - going to the 'toilet room' for urine/bowel elimination & cleaning self/arranging clothes: goes to toilet room, cleans self, arranges clothes without help Transfer: moves in & out of bed and chair without help (may use support object) Continence: has occasional 'accidents' Feeding: feeds self without help Total Score: 0 Information obtained from: patient Using telephone: independent Traveling: independent Shopping: independent Preparing meals: independent Housework: independent Taking medicine: independent Managing money: independent PHQ-9 Over the last 2 weeks, how often have you been bothered by any of the following problems? 1. Little interest or pleasure in doing things: not at all 2. Feeling down, depressed, or hopeless: not at all 3. Trouble falling or staying asleep, or sleeping too much: not at all 4. Feeling tired or having little energy: not at all 5. Poor appetite or overeating: not at all 6. Feeling bad about yourself - or that you are a failure or have let yourself or your family down: not at all 7. Trouble concentrating on things, such as reading the newspaper or watching television: not at all 8. Moving or speaking so slowly that other people could have noticed. Or the opposite - being so fidgety or restless that you have been moving around a lot more than usual: not at all 9. Thoughts that you would be better off or of hurting yourself in some way: not at all Total score: 0 Depression Screening Interpretation: Negative Depression Screening Done: Yes 98635 - PHQ-9 Billing: Yes Source: Developed by Drs. Werner Shahid, Blanca Mantilla, Tolu Ambrocio and colleagues, with an educational maria del carmen from [employer]. Thrive Questionnaire Date Thrive assessed: 05/17/23 I am a: Patient What is your living situation today?: I have a steady place to live Within the past 12 months, did the food you bought not last and you didn't have the money to get more?: Never true Within the past 12 months, did you worry whether your food would run out before you got money to buy more?: Never true Do you have trouble paying for medicines?: No Do you have trouble getting transportation to medical appointments?: No Do you have trouble paying your heating and electricity bill?: No Do you have trouble taking care of your child, family member or friend?: No Do you have trouble with day-to-day activities such as bathing, preparing meals, shopping, managing finances, etc.?: No Are you currently unemployed and looking for a job?: No Are you interested in more education?: No THRIVE Score: 0 BHAVYA-7 AMB Questionnaire BHAVYA-7 Date BHAVYA - 7 assessed: 05/17/23 Feeling nervous, anxious, or on edge: 1 = Several days Not being able to stop or control worryin = Several days Worrying too much about different things: 1 = Several days Trouble relaxin = Several days Being so restless that it is hard to sit still: 0 = Not at all Becoming easily annoyed or irritable: 0 = Not at all Feeling afraid as if something awful might happen: 0 = Not at all Total BHAVYA-7 score (0-4 normal; 5-9 mild; 10-14 moderate; 15-21 severe): 4 Source: Developed by Drs. Werner Shahid, Blanca Mantilla, Tolu Ambrocio and colleagues, with an educational maria del carmen from [employer]. BHAVYA-7 Assessment Billing BHAVYA-7 Assessment Tool: BHAVYA-7 Assessment 20074 AUDIT C Alcohol Use Questionnaire (AUDIT-C) 1. How often do you have a drink containing alcohol?: 2-4 times a month 2. How many drinks containing alcohol do you have on a typical day when you are drinking?: 1 or 2 3. How often do you have six or more drinks on one occasion?: Never Total Score: 2 Physical Exam Vital Signs: Last Vital Signs Pulse 75 05/17/23 08:31 BP 120/72 05/17/23 08:31 Pulse Ox 97 05/17/23 08:31 Oxygen Delivery Method Room Air 05/17/23 08:31 BMI result Body Mass Index 21.0 Assessment & Plan Assessment & Plan (1) Encounter for subsequent annual wellness visit (AWV) in Medicare patient: Code(s): Z00.00 - Encounter for general adult medical examination without abnormal findings Plan: Medical wellness checklist reviewed, discussed with patient and updated., copy given (2) Dyslipidemia: Code(s): E78.5 - Hyperlipidemia, unspecified Plan: Currently on rosuvastatin 5 mg taken 1 tablet twice a day week (3) Osteoporosis: Comment: fosoamax 10/2020- 10/2022 DC due to worsening bone density Prolia 02/2023 Code(s): M81.0 - Age-related osteoporosis without current pathological fracture Qualifiers: Osteoporosis type: age-related Presence of current pathological fracture: without current pathological fracture Qualified Code(s): M81.0 - Age-related osteoporosis without current pathological fracture Plan: I started on Prolia February 2023, repeat due in August 2023, ordered by Dr. Rick, continued on vitamin-D 3 supplements encouraged to do regular weight-bearing exercise and take adequate calcium from dietary sources. (4) Uterine myoma: Comment: Enlarging in menopause Code(s): D25.9 - Leiomyoma of uterus, unspecified Qualifiers: Uterine leiomyoma location: unspecified location Qualified Code(s): D25.9 - Leiomyoma of uterus, unspecified Plan: Has been referred by Dr. Allred to Dr. Burton for further evaluation (5) Osteoarthritis of hands, bilateral: Code(s): M19.041 - Primary osteoarthritis, right hand; M19.042 - Primary osteoarthritis, left hand Qualifiers: Osteoarthritis type: primary Qualified Code(s): M19.041 - Primary osteoarthritis, right hand; M19.042 - Primary osteoarthritis, left hand Plan: Seen by Rheumatology takes Tylenol arthritis as needed for joint pain (6) Plantar fasciitis, bilateral: Code(s): M72.2 - Plantar fascial fibromatosis Plan: Seen by Dr. Oliveira, currently on verapamil 15% cream apply to feet (7) Advanced directives, counseling/discussion: Code(s): Z71.89 - Other specified counseling Plan: Initiated the conversation about Advanced Directives. Advanced Directives help patients prepare for current and future decisions about their medical treatment and place of care. Discussed with patient that it is a process where a patients current condition and prognosis are reviewed, their wishes for information regarding their illness are elicited, and likely medical dilemmas are presented and options discussed. Already has Healthcare Proxy in place, MOLST form completed on today's visit. These forms can be amended as needed, reviewed yearly and make changes as needed Orders: Orders Lipid Panel 08/06/23 E78.5 - Hyperlipidemia, unspecified Medications: New denosumab (Prolia) 60 mg subcut [id number] Quality Reporting (2019) Depression/Bipolar (159/160/161/177) PHQ-9: Total score: 0 Coding Level of Care Code Medicare Subsequent (G0439) Diagnoses Encounter for subsequent annual wellness visit (AWV) in Medicare patient Z00.00 Dyslipidemia E78.5 Age-related osteoporosis without current pathological fracture M81.0 Osteoporosis type: age-related Presence of current pathological fracture: without current pathological fracture Uterine leiomyoma, unspecified location D25.9 Uterine leiomyoma location: unspecified location Primary osteoarthritis of both hands M19.041; M19.042 Osteoarthritis type: primary Plantar fasciitis, bilateral M72.2 Advanced directives, counseling/discussion Z71.89 CPT Codes Advance Care Planning - Time spent: 16-45 minutes ([id number]) Additional Codes BHAVYA-7 Assessment Billing - BHAVYA-7 Assessment Tool: BHAVYA-7 Assessment 80303 ([id number]) Advance Care Planning Advance Care Planning discussion: Completed/Scanned Date of discussion: 05/17/23 Who was present: Patient Forms completed: Health Care Proxy and MOLST Time spent: 16-45 minutes Actual minutes spent: 16
== END 2023-05-17 09:08 | disposition home or self-care (01) ==
PROVIDERS: Visit Provider Internal Medicine
DX: Z00.00 Encounter for general adult medical examination without abnormal findings (principal); E78.5 Hyperlipidemia, unspecified; M81.0 Age-related osteoporosis without current pathological fracture; D25.9 Leiomyoma of uterus, unspecified; M19.041 Primary osteoarthritis, right hand; M19.042 Primary osteoarthritis, left hand; M72.2 Plantar fascial fibromatosis
CPT/HCPCS: 99497; G0439

== ENCOUNTER 2023-08-04 07:14 | Outpatient (REF) | payer MEDICARE, OTHER, SELFPAY ==
[2023-08-04 10:47] LABS: MANUAL DIFF FLAG NO
[2023-08-04 10:58] LABS: Basophils Absolute Auto 0.1 X10*3/uL (0.0-0.2); Basophils Percent Auto 1.9 % (0-2); Eosinophils Absolute Auto 0.2 X10*3/uL (0.0-0.4); Hematocrit 37.7 % (37.0-47.0); Hemoglobin 12.4 g/dl (12.0-16.0); Imm Gran Abs Auto 0.01 X10*3/uL (0.00-0.03); Imm Gran Pct Auto 0.3 % (0.0-0.4); Lymphocytes Absolute Auto 2.1 X10*3/uL (1.2-4.9); Lymphocytes Percent Auto 55.5 % (20-40); Mean Corpuscular HGB Conc 32.9 g/dl (31.0-35.0); Mean Corpuscular Hemoglobin 30.7 pg (27.0-33.0); Mean Corpuscular Volume 93.3 fL (80.0-98.0); Monocytes Absolute Auto 0.3 X10*3/uL (0.1-1.2); Monocytes Percent Auto 9.1 % (2-11); Neutrophils Absolute Auto 1.1 x10*3/uL (2.0-8.3); Neutrophils Percent Auto 29.2 % (45-73); Platelet Count 220 X10*3/uL (160-400); Red Blood Count 4.04 X10*6/uL (4.20-5.50); Red Cell Distribution Width 13.5 % (11.0-16.0); White Blood Count 3.8 X10*3/uL (4.8-10.8)
[2023-08-04 11:13] LABS: Alanine Aminotransferase 18 U/L (0-31); Albumin Level 4.5 g/dL (3.5-5.0); Alkaline Phosphatase 33 U/L (39-117); Anion Gap 9 (12-20); Aspartate Amino Transferase 21 U/L (5-31); Bilirubin Total 0.5 mg/dL (0.0-1.0); Blood Urea Nitrogen 16 mg/dL (9-16); Calcium 9.9 mg/dL (8.4-10.2); Carbon Dioxide 29 mmol/L (22-29); Chloride 110 mmol/L (96-108); Cholesterol 206 mg/dL (<200); Estimated Glomerular Filt Rate > 60; Glucose Random 85 mg/dL (60-115); HDL Cholesterol 72 mg/dL (>40); LDL Cholesterol Calculated 113 mg/dL (<100); Potassium 4.1 mmol/L (3.3-5.1); Sodium 144 mmol/L (135-145); Total Protein 7.4 g/dL (6.5-8.0); Triglycerides 109 mg/dL (<150)
[2023-08-09 17:23] LABS: Vitamin D 25-OH, D2 <4 ng/mL; Vitamin D 25-OH, D3 34 ng/mL; Vitamin D 25-OH, Total 34 ng/mL (30-100)
== END 2023-08-04 07:15 | disposition home or self-care (01) ==
LOC: HO.HMGCLDS 07:14
PROVIDERS: PCP Internal Medicine; Visit Provider Student in an Organized Health Care Education/Training Program
DX: E78.5 Hyperlipidemia, unspecified (principal); E55.9 Vitamin D deficiency, unspecified; M81.0 Age-related osteoporosis without current pathological fracture
CPT/HCPCS: 36415; 80053; 80061; 82306; 85025

== ENCOUNTER 2023-08-12 09:51 | Outpatient (AMB) | payer MEDICARE, OTHER, SELFPAY ==
[2023-08-12 10:03] VITALS: BP 122/74; PULSE 64; O2SAT 99; BMI 46.4
--- NOTE | 2023-08-12 10:03 | MHC.OFFVIS ---
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 Doing well overall. Prolia is well tolerated. Overall feels well. Has no complaints today. Initial history: This is a 72 year old female who was referred by OBGYN for osteoporosis management. She was diagnosed with osteoporosis in 2020 and was started on alendronate. Her most recent DEXA scan shows drop in her bone density. Patient states that she has been having bilateral hand pain from arthritis for a few years now. She takes Tylenol which provides some relief. She reached menopause at age 54. Stated that her mother had osteoporosis and was on treatment for it. She denies recurrent falls. [facility] Medical History Dyslipidemia Plantar fasciitis, bilateral Surgical History H/O: knee surgery Family History Brother WPW (Vqper-Dgzsllloi-Jaclh syndrome) Sister Atrial fibrillation Arthritis Mother Arthritis Social History Alcohol intake: current Alcohol intake frequency: holidays/special occasions only Patient Tobacco Use Status: Former Tobacco user e-Cigarette/Vaping Use: Never Used service: No Current occupational status: retired Cognitive needs: No Hearing needs: No Vision needs: Yes Female Reproductive History Menstrual Total pregnancies: 2 Review of Systems Musc Denies arthralgias Physical Exam Vital Signs: Last Vital Signs Pulse 64 08/12/23 10:03 BP 122/74 08/12/23 10:03 Pulse Ox 99 08/12/23 10:03 Oxygen Delivery Method Room Air 08/12/23 10:03 BMI result Body Mass Index 46.4 Const General: cooperative, healthy appearing, comfortable and no acute distress Nutritional Appearance: average body habitus Orientation/consciousness: patient oriented x3 Limitations: no limitations HEENT Head: Yes normocephalic and Yes atraumatic Skin General skin exam: no rashes or lesions noted Neuro General: patient oriented x3 Extrem Other: Osteoarthritic changes of both hands with no active synovitis Results Reviewed Results Reviewed: COMPARISON: Baseline BD dated 10/24/2020. TECHNIQUE: Using a [employer] DXA System (software version: 13.1) manufactured by [employer], dual-energy x-ray absorptiometry was performed of the lumbar spine and left hip. The images are of good technical quality. Summary results are attached. FINDINGS: LEFT FEMUR, NECK: Current: BMD 0.576 g/cm2, Z-score -1.2, T-score -3.3, osteoporosis. Baseline: BMD 0.562 g/cm2. LEFT FEMUR, TOTAL: Current: BMD 0.515 g/cm2, Z-score -2.0, T-score -3.9, osteoporosis, 4.5% decrease from baseline (<5% change is not significant). Baseline: BMD 0.539 g/cm2. AP SPINE L1-L4: Current: BMD 0.849 g/cm2, Z-score -0.5, T-score -2.8, osteoporosis, 3.7% increase from baseline (<5% change is not significant). Baseline: BMD 0.819 g/cm2. IDENTIFIED RISK FACTORS: Menopause, height loss, osteoporosis. HISTORY OF FRACTURE: None listed. MEDICATIONS: Calcium supplements or multivitamin, vitamin D, bisphosphonate. MM/XR DEXA axial skeleton IMPRESSION: 1. DIAGNOSIS: Osteoporosis based on the lowest T-score value of -3.9 in the total femur applying World Health Organization criteria. 2. 10-YEAR FRACTURE RISK PREDICTION, FRAX: According to the guidelines, FRAX calculation should only be performed on patients in the osteopenia bone density category. Therefore, FRAX was not performed on this patient. Assessment & Plan Assessment & Plan (1) Osteoporosis: Comment: fosoamax 10/2020- 10/2022 DC due to worsening bone density Prolia 02/2023 Code(s): M81.0 - Age-related osteoporosis without current pathological fracture Category: Medical Qualifiers: Osteoporosis type: age-related Presence of current pathological fracture: without current pathological fracture Qualified Code(s): M81.0 - Age-related osteoporosis without current pathological fracture Plan: 73-year-old female with osteoporosis returns for follow-up. Doing well overall. She received her Prolia injection in clinic today. Continue Prolia q.6 months. Discussed need for 1200 mg of elemental calcium supplementation daily. Vitamin-D level 34, not at target. She is taking vitamin-D 1000 units daily. Advised patient to take 2000 units daily. Labs before next visit in 6 months Plan I spent 20 minutes reviewing patient's chart, evaluating patient, ordering diagnostic workup, counseling patient and documenting in the chart Orders: Orders Basic Metabolic Panel 6 Months M81.0 - Age-related osteoporosis without current pathological fracture Vitamin D 25-OH (D2 and D3) 6 Months E55.9 - Vitamin D deficiency, unspecified Coding Level of Care Code Est Pt Level 3 (39052) Diagnoses Age-related osteoporosis without current pathological fracture M81.0 Osteoporosis type: age-related Presence of current pathological fracture: without current pathological fracture
--- NOTE | 2023-08-12 11:25 | AM.OFFVISNUR ---
Intake Vital Signs 08/12/23 10:03 Height 4 ft 11 in Weight 229 lb 11.547 oz BMI 46.4 BP 122/74 Blood Pressure Location Rt brachial Position Sitting Pulse 64 Pulse Source Pulse Oximeter Pulse Oximetry (%) 99 Oxygen Delivery Method Room Air Intake Visit Reasons: F/U Osteoporosis/prolia inj/CM Allergies penicillin V Allergy (Unknown, Verified 08/12/23 10:12) diarrhea Medication List - Last Reconciled 08/12/23 by Jalil Manning MD acetaminophen ER (Tylenol Arthritis Pain) 650 mg PO Q12H calcium 600 mg PO BID cholecalciferol (vitamin D3) 25 mcg PO DAILY denosumab (Prolia) 60 mg subcut [id number] docusate sodium 100 mg PO DAILY rosuvastatin 5 mg PO 2XW 90 days [verapamil Hcl 15% topical BID] Office Meds Prolia 60 mg/mL subcutaneous syringe Performing Provider: Jalil Manning MD Performing Location: [facility] [place] [facility] Rheumatology Administered by: Tamica Barrientos RN on 08/12/23 10:15 Dose Route Admin Location Dispensed Lot Number Expiration Date [facility] Print[employer] 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 Pt tolerated injection well and denies any adverse reactions after first injection. Coding Diagnoses Age-related osteoporosis without current pathological fracture M81.0 Osteoporosis type: age-related Presence of current pathological fracture: without current pathological fracture Assessment & Plan Assessment & Plan (1) Osteoporosis: Comment: fosoamax 10/2020- 10/2022 DC due to worsening bone density Prolia 02/2023 Code(s): M81.0 - Age-related osteoporosis without current pathological fracture Category: Medical Qualifiers: Osteoporosis type: age-related Presence of current pathological fracture: without current pathological fracture Qualified Code(s): M81.0 - Age-related osteoporosis without current pathological fracture Orders: Orders Basic Metabolic Panel 6 Months M81.0 - Age-related osteoporosis without current pathological fracture Vitamin D 25-OH (D2 and D3) 6 Months E55.9 - Vitamin D deficiency, unspecified AMB Denosumab Injection Practice Supplied Today M81.0 - Age-related osteoporosis without current pathological fracture
== END 2023-08-12 10:38 | disposition home or self-care (01) ==
LOC: HO.RHE 09:51
PROVIDERS: PCP Internal Medicine; Visit Provider Student in an Organized Health Care Education/Training Program
DX: M81.0 Age-related osteoporosis without current pathological fracture (principal)
CPT/HCPCS: 99213

== ENCOUNTER → 2023-08-12 09:51 | Outpatient (BNVA) | payer MEDICARE, OTHER, SELFPAY | PROVIDERS: PCP Internal Medicine; Visit Provider Student in an Organized Health Care Education/Training Program | DX: M81.0 Age-related osteoporosis without current pathological fracture (principal); E55.9 Vitamin D deficiency, unspecified | CPT/HCPCS: 96372; 99212; J0897 ==

== ENCOUNTER 2023-08-20 10:33 | Outpatient (AMB) | payer MEDICARE, OTHER, SELFPAY ==
--- NOTE | 2023-08-20 12:39 | MHC.PC.OV ---
Intake Visit Reasons: follow up (andriod) Allergies penicillin V Allergy (Unknown, Verified 08/20/23 12:46) diarrhea Medication List - Last Reconciled 08/20/23 by Cassia Sutton MD acetaminophen ER (Tylenol Arthritis Pain) 650 mg PO Q12H calcium 600 mg PO BID cholecalciferol (vitamin D3) 50 mcg PO DAILY denosumab (Prolia) 60 mg subcut [id number] docusate sodium 100 mg PO DAILY rosuvastatin 5 mg PO 2XW 90 days [verapamil Hcl 15% topical BID] Tobacco use date assessed: 12/22/22 Dental Screening Dental Screen Date: 12/22/22 HPI follow up (andriod) HPI Details Tele health visit made with 73-year-old lady here today for follow-up on her lipids. She is currently taking rosuvastatin 5 mg taken 1 tablet twice a week only. Tolerating medication well with no complaints of any muscle pain, no weakness, joint pain or rash has been compliant with healthy eating habits and gets regular exercise. PFSH Medical History Dyslipidemia Plantar fasciitis, bilateral Surgical History H/O: knee surgery Family History Brother WPW (Pycls-Jxvxugarh-Sqioz syndrome) Sister Atrial fibrillation Arthritis Mother Arthritis Social History Alcohol intake: current Alcohol intake frequency: holidays/special occasions only Patient Tobacco Use Status: Former Tobacco user e-Cigarette/Vaping Use: Never Used service: No Current occupational status: retired Cognitive needs: No Hearing needs: No Vision needs: Yes Questionnaire Thrive Questionnaire Date Thrive assessed: 05/17/23 BHAVYA-7 AMB Questionnaire BHAVYA-7 Date BHAVYA - 7 assessed: 05/17/23 Source: Developed by Drs. Werner Shahid, Blanca Mantilla, Tolu Ambrocio and colleagues, with an educational maria del carmen from [employer]. Review of Systems Const All systems reviewed & are unremarkable except as noted in HPI and below Card Denies chest pain with activity Resp Reports no additional complaints GI Reports no additional complaints Musc Details: No history of fractures Reports as per HPI Physical exam (Primary Care) Tobacco/Smoking Status: Tobacco use Status Tobacco use date assessed 12/22/22 08/20/23 12:39 Patient Tobacco Use Status Former Tobacco user 08/20/23 12:39 e-Cigarette/Vaping Use Never Used 08/20/23 12:39 Thrive Assessment: Date of Thrive Assessment Date Thrive assessed 05/17/23 08/20/23 12:39 Telehealth Telehealth Telehealth Platform: [employer] [facility] Location of provider rendering services: practice address Location of patient: address on file Patient Identification confirmed using: Name, : Yes Telehealth method: video Patient verbally consented to treatment: Yes Patient verbally consented to billing insurance company: Yes Patient informed of any privacy concerns related to visit: Yes Minutes spent on Phone/Video with Pt.: 15 Results Reviewed Results Reviewed: Name: Carl Mirza Age/Sex: 73/F : 1950 Unit#: [id number] Attend Dr: Jalil Manning MD Re08/04/23 Status: DEP REF Location: [facility] Disch: SPEC : [id number] INDRA: 08/04/23 STATUS: COMP REQ : [id number] RECD: 08/04/[address]: Jalil Manning MD COMP: 08/04/23 ENTERED: 08/04/[address]: Cassia Sutton MD ORDERED: CBC Auto Diff Test Result Flag Reference WBC 3.8 L 4.8-10.8 X10*3/uL RBC 4.04 L 4.20-5.50 X10*6/uL HGB 12.4 12.0-16.0 g/dl HCT 37.7 37.0-47.0 % MCV 93.3 80.0-98.0 fL MCH 30.7 27.0-33.0 pg MCHC 32.9 31.0-35.0 g/dl RDW 13.5 11.0-16.0 % PLT 220 160-400 X10*3/uL MPV 11.0 9.4-12.3 fL Neut Pct Auto 29.2 L 45-73 % ImGran Pct Auto 0.3 0.0-0.4 % Lymp Pct Auto 55.5 H 20-40 % Hopkins Pct Auto 9.1 2-11 % Eos Pct Auto 4.0 0-4 % Baso Pct Auto 1.9 0-2 % NRBC Pct Auto 0.0 0.0-0.2 /100WBC ANC Neut Abs # 1.1 L 2.0-8.3 x10*3/uL ImGran Abs Auto 0.01 0.00-0.03 X10*3/uL Lymph Abs Auto 2.1 1.2-4.9 X10*3/uL Hopkins Abs Auto 0.3 0.1-1.2 X10*3/uL Eos Abs Auto 0.2 0.0-0.4 X10*3/uL Baso Abs Auto 0.1 0.0-0.2 X10*3/uL NRBC Abs Auto 0.000 0.0-0.012 X10*3/uL Name: Carl Mirza Age/Sex: 73/F : 1950 Unit#: [id number] Attend Dr: Jalil Manning MD Re08/04/23 Status: DEP REF Location: [facility] Disch: SPEC : [id number] INDRA: 08/04/23 STATUS: COMP REQ : [id number] RECD: 08/04/23-[address]: Cassia Sutton MD COMP: 08/04/23 ENTERED: 08/04/[address] [facility] DR: Jalil Manning MD ORDERED: CMP, Lipid Panel Test Result Flag Reference Sodium 144 135-145 mmol/L Potassium 4.1 3.3-5.1 mmol/L CL 110 H 96-108 mmol/L CO2 29 22-29 mmol/L Gap 9 L 12-20 BUN 16 9-16 mg/dL Creat 0.74 0.5-1.4 mg/dL EGFR > 60 NOTE: For -Polish individuals, multiply the result by 1.210. Chronic Kidney Disease: Estimated GFR < 60 mL/min/1.73m2 Severe Kidney Disease: Estimated GFR < 15 mL/min/1.73m2 Glucose, Random 85 60-115 mg/dL CA 9.9 8.4-10.2 mg/dL Total Bili 0.5 0.0-1.0 mg/dL AST (GOT) 21 5-31 U/L ALT (GPT) 18 0-31 U/L Protein, Total 7.4 6.5-8.0 g/dL Alb 4.5 3.5-5.0 g/dL Triglyceride 109 <150 mg/dL Desirable Triglyceride: less than 150 mg/dL Borderline High Triglyceride 150-199 mg/dL High Triglyceride: 200-499 mg/dL Very High Triglyceride: greater than or equal to 5OO mg/dL Cholesterol 206 H <200 mg/dL Desirable Cholesterol: less than 200 mg/dL Borderline High Cholesterol: 200-239 mg/dL High Cholesterol: greater than 239 mg/dL LDL Calculated 113 H <100 mg/dL Desirable LDL: less than 100 mg/dL Near Optimal/Above Optimal LDL: 110-129 mg/dL Borderline High LDL: 130-159 mg/dL High LDL: 160-189 mg/dL Very High LDL: greater than or equal to 190 mg/dL HDL 72 >40 mg/dL Desirable HDL: greater than 40 mg/dL Note: This HDL assay may give artificially low results in patients with liver disease. Alk Phos 33 L 39-117 U/L Assessment and Plan Assessment & Plan (1) Dyslipidemia: Code(s): E78.5 - Hyperlipidemia, unspecified Plan: Reviewed recent fasting lipid profile with patient with levels at goal and within normal limits . Continue rosuvastatin 5 mg taken 1 tablet twice a week , in addition to adherence to low-cholesterol diet and regular exercise, at least 30 minutes 3 to 4 times a week. Advised patient to make healthy food choices, eat more fruits, vegetables, whole grains, wild caught fish and low-fat dairy. Limit amount of meat and fried or fatty food products, as well as processed foods and fast foods. Coding Level of Care Code Tele Est Pt Level 4 (31138) Diagnoses Dyslipidemia E78.5
== END 2023-08-20 13:15 | disposition home or self-care (01) ==
LOC: HO.HMGC 10:33
PROVIDERS: PCP Internal Medicine; Visit Provider Internal Medicine
DX: E78.5 Hyperlipidemia, unspecified (principal)
CPT/HCPCS: 99214

== ENCOUNTER 2023-11-02 08:12 | Outpatient (REF) | payer MEDICARE, OTHER, SELFPAY ==
--- NOTE | ~2023-11-02 | MM_ITS ---
EXAMINATION: MM SCREENING DIGITAL BREAST TOMOSYNTHESIS, BILATERAL CLINICAL INFORMATION: Screening. Asymptomatic. COMPARISON: Mammography: Comparison is made with available priors TECHNIQUE: Digital breast tomosynthesis is performed in both the craniocaudal and mediolateral oblique views along with computer-aided detection (CAD). Synthesized 2D images are generated from the tomosynthesis. FINDINGS: The breasts are heterogeneously dense, which may obscure small masses (ACR BI-RADS breast composition Category c). There are no significant masses, abnormal calcifications, or other abnormalities. MM/MM tomosynthesis screening BI IMPRESSION: No mammographic evidence of malignancy. ASSESSMENT: BI-RADS BI-RADS 1 - Negative RECOMMENDATION: Routine annual mammography screening. 1 year F/U This examination should not preclude the clinical evaluation of a suspicious palpable abnormality. This patient's information was entered into a reminder system with a target due date for their next mammogram. Electronically signed by: Shelbi Gould DO 11/26/2023 01:00 PM EDT
== END 2023-11-02 08:13 | disposition home or self-care (01) ==
LOC: HO.MAMMO 08:12
PROVIDERS: PCP Internal Medicine; Visit Provider Internal Medicine
DX: Z12.31 Encounter for screening mammogram for malignant neoplasm of breast (principal)
CPT/HCPCS: 77063; 77067

== ENCOUNTER → 2023-11-02 08:30 | Outpatient (BNV) | payer MEDICARE, OTHER, SELFPAY | PROVIDERS: PCP Internal Medicine; Visit Provider Internal Medicine | DX: Z12.31 Encounter for screening mammogram for malignant neoplasm of breast (principal) | CPT/HCPCS: 77063; 77067 ==

== ENCOUNTER 2023-11-03 10:31 | Outpatient (AMB) | payer MEDICARE, OTHER, SELFPAY ==
[2023-11-03 10:36] VITALS: BP 120/70; BMI 20.9
--- NOTE | 2023-11-03 10:36 | A.OFFVIS_ITS ---
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 No complaints, no pelvic pressure, pain or vaginal bleeding. Last Pap/HPV was few years ago no history of abnormal Pap smear last 25 years Last Mammogram was in 10/29, the report is still pending Last Colonoscopy was in 01/21, the recommendation was to repeat in 10 years Last DEXA scan was in 10/28 Last pelvic ultrasound in 09/27 showed a 3.5 cm myoma, the patient was referred to Gyne Onc repeat ultrasound showed stable myoma, the recommendation was to continue surveillance [facility] Medical History Dyslipidemia Plantar fasciitis, bilateral Surgical History H/O: knee surgery Family History Brother WPW (Niswu-Ngnnysrcm-Dowxw syndrome) Sister Atrial fibrillation Arthritis Mother Arthritis Social History Alcohol intake: current Alcohol intake frequency: holidays/special occasions only Patient Tobacco Use Status: Former Tobacco user e-Cigarette/Vaping Use: Never Used service: No Current occupational status: retired Cognitive needs: No Hearing needs: No Vision needs: Yes Female Reproductive History Menstrual Date of Mammogram: 11/02/23 Review of Systems Const All systems reviewed & are unremarkable except as noted in HPI and below Card Reports as per HPI Resp Reports as per HPI GI Reports as per HPI and Reports no additional complaints Reports as per HPI Physical Exam Vital Signs: Last Vital Signs BP 120/70 11/03/23 10:36 BMI result Body Mass Index 20.9 Const General: cooperative, healthy appearing and comfortable Chest Chest palpation & inspection: normal inspection of the chest and normal palpation of entire chest wall Breast/axilla inspection: normal inspection of the breasts and normal inspection of the axillae Breast/axilla palpation: normal palpation of the breasts, normal palpation of the axillae and no axillary lymphadenopathy Resp Effort & Inspection: normal respiratory effort Auscultation: clear to auscultation bilaterally Percussion: percussion normal Cardio Palpation: normal PMI Rate: regular rate Rhythm: regular rhythm Heart sounds: no murmurs and no rubs Peripheral pulses: Peripheral pulses 2+ throughout GI Inspection: Yes normal to inspection Palpation (GI): Soft to palpation, nontender, no guarding, not rigid and No hepatosplenomegaly present Percussion: Yes normal to percussion Auscultation: normal bowel sounds Rectal Exam - Female: deferred General: Yes bladder normal to palpation External Female Exam: No lesion Speculum Exam - Vagina: normal appearance of the vagina, normal palpation, normal vaginal discharge and not erythematous Speculum Exam - Cervix: normal appearance of the cervix and normal palpation Bimanual exam- vagina & uterus: normal bimanual exam, normal palpation, bladder normal to palpation, consistency normal, normal palpation and enlarged Bimanual Exam- Adnexa, other: normal adnexae, no masses and no tenderness Assessment & Plan Assessment & Plan (1) Uterine myoma: Code(s): D25.9 - Leiomyoma of uterus, unspecified Category: Medical Qualifiers: Uterine leiomyoma location: unspecified location Qualified Code(s): D25.9 - Leiomyoma of uterus, unspecified Plan: Will repeat pelvic ultrasound compare the size of the uterine myomas. Instructions given the patient to schedule an ultrasound and a follow-up appointment. (2) Well woman exam: Code(s): Z01.419 - Encounter for gynecological examination (general) (routine) without abnormal findings Category: Medical Plan: Co testing not indicated since the patient 's age is above 65 with no history of abnormal Pap smears last 25 years. Counseled the patient about the recommended dietary allowance of 1200 mg of Calcium & 800 IU of vitamin D. Instructions given the patient to schedule next screening Mammogram in 10/30. The patient was instructed to perform monthly self-breast exams and to schedule an annual exam in a year; All questions answered and the patient verbalized understanding. Orders: Orders US OB pelvic and transvaginal Today D25.9 - Leiomyoma of uterus, unspecified Coding Level of Care Code Est Pt Prev Care >65y(68066) Diagnoses Uterine leiomyoma, unspecified location D25.9 Uterine leiomyoma location: unspecified location Well woman exam Z01.419
== END 2023-11-03 11:01 | disposition home or self-care (01) ==
PROVIDERS: PCP Internal Medicine; Visit Provider Obstetrics & Gynecology
DX: D25.9 Leiomyoma of uterus, unspecified (principal); Z01.419 Encounter for gynecological examination (general) (routine) without abnormal findings
CPT/HCPCS: 99213; G0101

== ENCOUNTER → 2023-11-03 10:31 | Outpatient (BNVA) | payer MEDICARE, OTHER, SELFPAY | PROVIDERS: PCP Internal Medicine; Visit Provider Obstetrics & Gynecology | DX: Z01.419 Encounter for gynecological examination (general) (routine) without abnormal findings (principal); Z12.39 Encounter for other screening for malignant neoplasm of breast; D25.9 Leiomyoma of uterus, unspecified | CPT/HCPCS: 99212; G0101 ==

== ENCOUNTER 2024-02-07 07:54 | Outpatient (REF) | payer MEDICARE, OTHER, SELFPAY ==
[2024-02-07 10:56] LABS: Anion Gap 10 (12-20); Blood Urea Nitrogen 17 mg/dL (9-16); Calcium 10.3 mg/dL (8.4-10.2); Carbon Dioxide 31 mmol/L (22-29); Chloride 106 mmol/L (96-108); Estimated Glomerular Filt Rate > 60; Glucose Random 87 mg/dL (60-115); Potassium 4.1 mmol/L (3.3-5.1); Sodium 143 mmol/L (135-145)
[2024-02-12 13:23] LABS: Vitamin D 25-OH, D2 <4 ng/mL; Vitamin D 25-OH, D3 50 ng/mL; Vitamin D 25-OH, Total 50 ng/mL (30-100)
== END 2024-02-07 07:55 | disposition home or self-care (01) ==
LOC: HO.HMGCLDS 07:54
PROVIDERS: PCP Internal Medicine; Visit Provider Student in an Organized Health Care Education/Training Program
DX: E55.9 Vitamin D deficiency, unspecified (principal); M81.0 Age-related osteoporosis without current pathological fracture
CPT/HCPCS: 36415; 80048; 82306

== ENCOUNTER 2024-02-14 09:23 | Outpatient (AMB) | payer MEDICARE, OTHER, SELFPAY ==
[2024-02-14 09:28] VITALS: BP 118/72; PULSE 77; O2SAT 97; BMI 21.2
--- NOTE | 2024-02-14 09:28 | A.OFFVIS_ITS ---
Vital Signs 02/14/24 09:28 Height 4 ft 11 in Weight 104 lb 15.04 oz BMI 21.2 BP 118/72 Blood Pressure Location Lt brachial Position Sitting Pulse 77 Pulse Source Pulse Oximeter Pulse Oximetry (%) 97 Oxygen Delivery Method Room Air Intake Visit Reasons: Osteoprosis/prolia Intake Note: Patient is here for osteoprosis/ Prolia injection. Allergies penicillin V Allergy (Unknown, Verified 02/14/24 09:29) diarrhea HPI Comments Details: 73-year-old female with osteoporosis returns for follow-up and Prolia injection. Doing well overall. No complaints today. No recent falls or fractures Initial history: This is a 72 year old female who was referred by OBGYN for osteoporosis management. She was diagnosed with osteoporosis in 2020 and was started on alendronate. Her most recent DEXA scan shows drop in her bone density. Patient states that she has been having bilateral hand pain from arthritis for a few years now. She takes Tylenol which provides some relief. She reached menopause at age 54. Stated that her mother had osteoporosis and was on treatment for it. She denies recurrent falls. [facility] Medical History Dyslipidemia Plantar fasciitis, bilateral Surgical History H/O: knee surgery Family History Brother WPW (Trwdq-Favmdmaam-Xibcc syndrome) Sister Atrial fibrillation Arthritis Mother Arthritis Social History Alcohol intake: current Alcohol intake frequency: holidays/special occasions only Patient Tobacco Use Status: Former Tobacco user e-Cigarette/Vaping Use: Never Used service: No Current occupational status: retired Cognitive needs: No Hearing needs: No Vision needs: Yes Female Reproductive History Menstrual Total pregnancies: 2 Review of Systems Musc Denies arthralgias Physical Exam Vital Signs: Last Vital Signs Pulse 77 02/14/24 09:28 BP 118/72 02/14/24 09:28 Pulse Ox 97 02/14/24 09:28 Oxygen Delivery Method Room Air 02/14/24 09:28 BMI result Body Mass Index 21.2 Const General: cooperative, healthy appearing, comfortable and no acute distress Nutritional Appearance: average body habitus Orientation/consciousness: patient oriented x3 Limitations: no limitations HEENT Head: Yes normocephalic and Yes atraumatic Skin General skin exam: no rashes or lesions noted Neuro General: patient oriented x3 Extrem Other: Osteoarthritic changes of both hands with no active synovitis Office Meds Prolia 60 mg/mL subcutaneous syringe Performing Provider: Jalil Manning MD Performing Location: [facility] [place] Rheumatology Administered by: Tamica Barrientos RN on 02/14/24 09:39 Dose Route Admin Location Dispensed Lot Number Expiration Date [facility] Sr Technical Sales Consultant 60 mg subcut left upper extremity 1 mL [id number] 09/04/26 67554-744-33 [facility] Comments: Consent form signed by patient. Pt tolerated injection well. Pt denies any problems with previous injections. Assessment & Plan Assessment & Plan (1) Osteoporosis: Comment: fosoamax 10/2020- 10/2022 DC due to worsening bone density Prolia 02/2023 Code(s): M81.0 - Age-related osteoporosis without current pathological fracture Category: Medical Qualifiers: Osteoporosis type: age-related Presence of current pathological fracture: without current pathological fracture Qualified Code(s): M81.0 - Age-related osteoporosis without current pathological fracture Plan: 73-year-old female with osteoporosis returns for follow-up. Doing well overall. She received her Prolia injection in clinic today. Continue Prolia q.6 months. Vitamin-D level is now at target, continue vitamin-D 2000 units daily Continue calcium supplementation Patient does plenty of walking, discussed adding some resistance training 4th Prolia injection in 6 months then repeat DEXA scan afterwards Labs before next visit in 6 months Plan I spent 20 minutes reviewing patient's chart, evaluating patient, ordering diagnostic workup, counseling patient and documenting in the chart Orders: Orders Basic Metabolic Panel 6 Months M81.0 - Age-related osteoporosis without current pathological fracture Vitamin D 25-OH Total 6 Months E55.9 - Vitamin D deficiency, unspecified AMB Denosumab Injection Practice Supplied Today M81.0 - Age-related osteoporosis without current pathological fracture Coding Level of Care Code Est Pt Level 3 (49012) Diagnoses Age-related osteoporosis without current pathological fracture M81.0 Osteoporosis type: age-related Presence of current pathological fracture: without current pathological fracture
== END 2024-02-14 10:17 | disposition home or self-care (01) ==
PROVIDERS: PCP Internal Medicine; Visit Provider Student in an Organized Health Care Education/Training Program
DX: M81.0 Age-related osteoporosis without current pathological fracture (principal)
CPT/HCPCS: 99213

== ENCOUNTER → 2024-02-14 09:23 | Outpatient (BNVA) | payer MEDICARE, OTHER, SELFPAY | PROVIDERS: PCP Internal Medicine; Visit Provider Student in an Organized Health Care Education/Training Program | DX: M81.0 Age-related osteoporosis without current pathological fracture (principal) | CPT/HCPCS: 96372; 99212; J0897 ==

== ENCOUNTER 2024-07-03 07:03 | Outpatient (REF) | payer MEDICARE, OTHER, SELFPAY ==
--- OUTSIDE RECORDS SUMMARY | 2024-07-03 07:06 | XMS_ITS | Patient Health Record ---
[facility] Address [address] [place] [address] Care Team Providers Care Search Engine Optimization Consultant Name Role Phone Lesley PORRAS, Cassia Castillo Primary Care Provider Un available BethanieIvette rebolledo Unavailable [phone] Allergies Allergen (clinical drug ingredient) Drug/Non Drug Allergy documented on EMR Reaction Allergy Type Onset Date Status amoxicillin Amoxicillin diarrhea Drug Allergy Act long Reason For Referral No Information Medications Medication SIG (Take, Route, Frequency, Duration) Notes Start Date End Date Status Ibuprofen 200 MG 1 tablet with food o r milk as needed Orally Three times a day Not-Taking Vitamin C Unknown Verapamil HCl Active Alendronate Sodium 70 MG 1 tablet 30 min utes before the first food, beverage or medicine of the day with plain water Orally Active Rosuvastatin Calcium 5 MG 1 tablet Orall y Once a day Active Calcium 600 MG 1 tablet with meals Orally Twice a day Active Vitamin D3 25 MCG (1000 UT) 1 capsule Orally Once a day Active Vitamin D Not-Taking Social History Tobacco Use: Social History Observation Description Date Details (start date - stop date) Former Smoker NA - NA Tobacco Use/Smoking Question Answer Notes Are you a: former smoker Additional Findings: Tobacco Non-User Cu rrent non-smoker, but past smoking history unknown Alcohol Screen Question Answer Notes Did you have a drink contain ing alcohol in the past year? Yes How often did you have a dri nk containing alcohol in the past year? Monthly or less (1 point) Points 1 Interpretation Negative Tobacco use other than smoking: Question Answer Notes Are you an other tobacco user? No Plan Of Treatment No Information Insurance Providers Payer Name Payer Address Payer Phone Subscriber Number Group Number Insured Name Patient Relationship to Insured Coverage Start Date Coverage End Date Medicare National Govt Svcs Inc [address] [place] [address] [id number] Carl Forde Self - patient is the insured [facility] [address] [place] [address] [phone] [id number] Carl Forde Self - patient is the insured Medical (General) History Medical History History ICD Code Anxiety Arthritis CAD (Cholesterol) Measles Chicken pox Renal Cyst Uterine Fibroid Osteoporosis Renal Cysts, Aquired Uterine fibroids Surgical History Surgery Date(Month/Year) Tonsillectomy 1960 Left knee- Bone fragment removal 1967 Tubal Ligation 1987 Trigger Thumb 07/2007
[2024-07-03 10:05] LABS: MANUAL DIFF FLAG NO
[2024-07-03 10:11] LABS: Basophils Absolute Auto 0.1 X10*3/uL (0.0-0.2); Basophils Percent Auto 1.3 % (0-2); Eosinophils Absolute Auto 0.2 X10*3/uL (0.0-0.4); Hematocrit 39.4 % (37.0-47.0); Hemoglobin 12.8 g/dl (12.0-16.0); Lymphocytes Absolute Auto 2.3 X10*3/uL (1.2-4.9); Lymphocytes Percent Auto 50.8 % (20-40); Mean Corpuscular HGB Conc 32.5 g/dl (31.0-35.0); Mean Corpuscular Hemoglobin 30.1 pg (27.0-33.0); Mean Corpuscular Volume 92.7 fL (80.0-98.0); Monocytes Absolute Auto 0.5 X10*3/uL (0.1-1.2); Monocytes Percent Auto 11.7 % (2-11); Neutrophils Absolute Auto 1.4 x10*3/uL (2.0-8.3); Neutrophils Percent Auto 32.2 % (45-73); Platelet Count 241 X10*3/uL (160-400); Red Blood Count 4.25 X10*6/uL (4.20-5.50); Red Cell Distribution Width 13.3 % (11.0-16.0); White Blood Count 4.5 X10*3/uL (4.8-10.8)
[2024-07-03 10:26] LABS: Alanine Aminotransferase 22 U/L (0-31); Anion Gap 14 (12-20); Aspartate Amino Transferase 22 U/L (5-31); Blood Urea Nitrogen 18 mg/dL (9-16); Calcium 10.3 mg/dL (8.4-10.2); Carbon Dioxide 27 mmol/L (22-29); Chloride 106 mmol/L (96-108); Cholesterol 215 mg/dL (<200); Estimated Glomerular Filt Rate > 60; Glucose Fasting 83 mg/dL (60-99); HDL Cholesterol 82 mg/dL (>40); LDL Cholesterol Calculated 118 mg/dL (<100); Potassium 4.3 mmol/L (3.3-5.1); Sodium 143 mmol/L (135-145); Triglycerides 78 mg/dL (<150)
[2024-07-03 10:44] LABS: Vitamin D 25-OH Total 79.7 ng/mL (>30)
== END 2024-07-03 07:04 | disposition home or self-care (01) ==
LOC: HO.HMGCLDS 07:03
PROVIDERS: PCP Internal Medicine; Visit Provider Internal Medicine
DX: E78.5 Hyperlipidemia, unspecified (principal); M81.0 Age-related osteoporosis without current pathological fracture; D72.819 Decreased white blood cell count, unspecified; Z13.1 Encounter for screening for diabetes mellitus
CPT/HCPCS: 36415; 80048; 80061; 82306; 84450; 84460; 85025

== ENCOUNTER 2024-07-05 09:29 | Outpatient (AMB) | payer MEDICARE, OTHER, SELFPAY ==
--- OUTSIDE RECORDS SUMMARY | 2024-07-05 10:12 | XMS_ITS | Patient Health Record ---
[facility] Address [address] [place] [address] Care Team Providers Care Senior Cytotechnologist Name Role Phone Lesley PORRAS, Cassia Castillo Primary Care Provider Un available BethanieIvette rebolledo Unavailable [phone] Allergies Allergen (clinical drug ingredient) Drug/Non Drug [...] Inc [address] [place] [address] [id number] Carl Forde Self - patient is the insured [facility] [address] [place] [address] [id number] Carl Fored Self - patient is the insured Medical (General) History Medical History History ICD Code Anxiety Arthritis CAD (Cholesterol) Measles Chicken pox Renal Cyst Uterine Fibroid Osteoporosis Renal Cysts, Aquired Uterine fibroids Surgical History Surgery Date(Month/Year) Tonsillectomy 1960 Left knee- Bone fragment removal 1967 Tubal Ligation 1987 Trigger Thumb 07/2007
--- NOTE | 2024-07-05 10:43 | MHC.PC.OV ---
Vital Signs 07/05/24 10:49 Height 4 ft 11 in Weight 105 lb BMI 21.2 BP 136/82 Blood Pressure Location Rt brachial Position Sitting Respiration 15 Pulse 70 Pulse Source Pulse Oximeter Temp 97.8 F Temp Source Oral Pulse Oximetry (%) 96 Oxygen Delivery Method Room Air Intake Visit Reasons: Annual PE/Reschedule Intake Note: Pt is here today for her PE: last mammogram 11/02/23, bone density scan 10/29/22, colonoscopy 01/10/16 Allergies penicillin V Allergy (Unknown, Verified 07/05/24 11:03) diarrhea Medication List - Last Reconciled 07/05/24 by Cassia Sutton MD acetaminophen ER (Tylenol Arthritis Pain) 650 mg PO Q12H calcium 600 mg PO BID cholecalciferol (vitamin D3) 2,000 units PO DAILY denosumab (Prolia) 60 mg subcut [id number] docusate sodium 100 mg PO DAILY rosuvastatin 5 mg PO 2XW 90 days Tobacco use date assessed: 07/05/24 Fall risk assessment: 1 Fall in past year Last assessed Fall Risk: 07/05/24 Dental Screening Dental Screen Date: 07/05/24 Did you have a dental visit in the last 12 months?: Yes Did you have a dental problem in the last 6 months where you did not have access to dental care?: No Was dental information given to patient?: Patient has dentist HPI Annual PE/Reschedule HPI Details 74 year old lady with history of osteoporosis, currently on Prolia, has hyperlipidemia, presents for her physical exam. She is up-to-date with her screening mammogram, last done September 2023 and has an appointment already scheduled for this year. She has been seen by Rheumatology was started on Prolia last year for her osteoporosis, due for a repeat bone density scan later this year. She is up-to-date with her screening colonoscopy, done by Dr. Romano last 2015 with normal findings, not due again until 2025. She sees Dr. Allred for her routine pelvic exam, no longer gets cervical cancer screening. She has been referred by Dr. Allred you to Dr. Burton for a fibroid tumor in her uterus She is up-to-date with her lipid panel screening, done 07/03/2024 with normal findings, fasting sugar was checked and also was within normal limits. She is up-to-date with her vaccines, does not want to get the COVID booster anymore [facility] Medical History (Updated 07/05/24 @ 11:21 by Cassia Sutton MD) Dyslipidemia Plantar fasciitis, bilateral Surgical History H/O: knee surgery Family History Brother WPW (Atyox-Yokfxwywr-Mwpeg syndrome) Sister Atrial fibrillation Arthritis Mother Arthritis Social History Alcohol intake: current Alcohol intake frequency: holidays/special occasions only Patient Tobacco Use Status: Former Tobacco user e-Cigarette/Vaping Use: Never Used service: No Current occupational status: retired Cognitive needs: No Hearing needs: No Vision needs: Yes Questionnaire PHQ-9 Over the last 2 weeks, how often have you been bothered by any of the following problems? 1. Little interest or pleasure in doing things: not at all 2. Feeling down, depressed, or hopeless: not at all 3. Trouble falling or staying asleep, or sleeping too much: not at all 4. Feeling tired or having little energy: not at all 5. Poor appetite or overeating: not at all 6. Feeling bad about yourself - or that you are a failure or have let yourself or your family down: not at all 7. Trouble concentrating on things, such as reading the newspaper or watching television: not at all 8. Moving or speaking so slowly that other people could have noticed. Or the opposite - being so fidgety or restless that you have been moving around a lot more than usual: not at all 9. Thoughts that you would be better off or of hurting yourself in some way: not at all Total score: 0 Depression Screening Interpretation: Negative Depression Screening Done: Yes 11049 - PHQ-9 Billing: Yes Source: Developed by Drs. Werner Shahid, Blanca Mantilla, Tolu Ambrocio and colleagues, with an educational maria del carmen from [employer]. Thrive Questionnaire Date Thrive assessed: 07/05/24 I am a: Patient What is your living situation today?: I have a steady place to live Within the past 12 months, did the food you bought not last and you didn't have the money to get more?: Never true Within the past 12 months, did you worry whether your food would run out before you got money to buy more?: Never true Do you have trouble paying for medicines?: No Do you have trouble getting transportation to medical appointments?: No Do you have trouble paying your heating and electricity bill?: No Do you have trouble taking care of your child, family member or friend?: No Do you have trouble with day-to-day activities such as bathing, preparing meals, shopping, managing finances, etc.?: No Are you currently unemployed and looking for a job?: No Are you interested in more education?: No Please select the resources that you would like help with: None Currently or been in a relationship where the following occur: No concerns reported THRIVE Score: 0 AUDIT C Alcohol Use Questionnaire (AUDIT-C) 1. How often do you have a drink containing alcohol?: 2-3 times a week 2. How many drinks containing alcohol do you have on a typical day when you are drinking?: 1 or 2 3. How often do you have six or more drinks on one occasion?: Never Total Score: 3 BHAVYA-7 AMB Questionnaire BHAVYA-7 Date BHAVYA - 7 assessed: 07/05/24 Feeling nervous, anxious, or on edge: 0 = Not at all Not being able to stop or control worryin = Not at all Worrying too much about different things: 0 = Not at all Trouble relaxin = Not at all Being so restless that it is hard to sit still: 0 = Not at all Becoming easily annoyed or irritable: 0 = Not at all Feeling afraid as if something awful might happen: 0 = Not at all Total BHAVYA-7 score (0-4 normal; 5-9 mild; 10-14 moderate; 15-21 severe): 0 Source: Developed by Drs. Werner Shahid, Blanca Mantilla, Tolu Ambrocio and colleagues, with an educational maria del carmen from [employer] Review of Systems Const All systems reviewed & are unremarkable except as noted in HPI and below Eyes Details: [facility] ENT Details: Dental exam and cleaning every 6 month Card Denies chest pain with activity Resp Reports no additional complaints GI Reports no additional complaints Reports urinary incontinence Musc Details: No history of fractures Reports as per HPI Skin/Breast Denies breast pain, Denies breast mass and Denies rash Neuro Reports no additional complaints Psych Reports no additional complaints Endo Reports no additional complaints Ilya/Lymph Reports no additional complaints Aller/Immun Reports no additional complaints Physical exam (Primary Care) Vital Signs: Last Vital Signs Temp 97.8 F 07/05/24 10:49 Pulse 70 07/05/24 10:49 Resp 15 07/05/24 10:49 BP 136/82 07/05/24 10:49 Pulse Ox 96 07/05/24 10:49 Oxygen Delivery Method Room Air 07/05/24 10:49 BMI result Body Mass Index 21.2 Tobacco/Smoking Status: Tobacco use Status Tobacco use date assessed 07/05/24 07/05/24 10:48 Patient Tobacco Use Status Former Tobacco user 07/05/24 10:48 e-Cigarette/Vaping Use Never Used 07/05/24 10:48 PHQ-9: PHQ-9 Score PHQ-9: Total score 0 07/05/24 11:21 Depression Screening Interpretation: Negative Thrive Assessment: Date of Thrive Assessment Date Thrive assessed 07/05/24 07/05/24 10:48 Currently or been in a relationship where the following occur: No concerns reported Const General: no acute distress and alert Orientation/consciousness: patient oriented x3 HENMT Head: Yes normocephalic Ears: external ears normal, TM's normal bilaterally and EAC's normal General nose exam: Normal external nose present and No nasal discharge present Face and sinus: Yes face symmetric Mouth: oropharynx normal and moist mucous membranes Eyes General: appearance normal, both eyes and all related structures Eyelids: Yes eyelids normal Conjunctivae: conjunctivae normal Pupils: Equal, round and reactive pupils present EOM: EOMs intact bilaterally Neck Neck: Yes full ROM, Yes no lymphadenopathy and Yes supple Thyroid: Thyroid normal Resp Effort & Inspection: able to speak in complete sentences Auscultation: clear to auscultation bilaterally Cardio Rate: regular rate Rhythm: regular rhythm Heart sounds: S1 normal heart sound present and S2 normal heart sound present GI Palpation (GI): Soft to palpation, nontender, no guarding and no masses Auscultation: normal bowel sounds General: Yes no CVA tenderness Back/Spine/Pelvis Back: no CVA tenderness and No back tenderness Skin General skin exam: no rashes or lesions noted Neuro General: patient oriented x3, gait normal, moves all extremities, Normal light touch and pain sensation, no focal motor deficits and CN's II-XI intact bilaterally Cranial nerves: Yes Equal, round and reactive pupils present Cognition (Neuro): normal cognition Gait exam (Neuro): Normal gait present Motor exam (neuro): 5/5 motor strength present throughout Extrem General: Yes normal to inspection, Yes full ROM, Yes no joint enlargement, Yes no pedal edema and Yes normal gait Psych Appearance: grossly normal and well kempt Mental Status: mental status grossly normal Speech and movement: Normal speech and movement present Affect: normal affect Attitude: cooperative Thought process: Normal thought process present Thought content: Normal thought content present Results Reviewed Results Reviewed: Name: Carl Mirza Age/Sex: 74/F : 1950 Unit#: [id number] Attend Dr: Cassia Sutton MD Re07/03/24 Status: DEP [facility] Disch: SPEC : [id number] INDRA: 07/03/24 STATUS: COMP REQ : [id number] RECD: 07/03/[address]: Cassia Sutton MD COMP: 07/03/24 ENTERED: 07/03/24-[address]: ORDERED: Met Prof Fast, AST, ALT, Lipid Panel, Vitamin D 25-OH Test Result Flag Reference Sodium 143 135-145 mmol/L Potassium 4.3 3.3-5.1 mmol/L CL 106 96-108 mmol/L CO2 27 22-29 mmol/L Gap 14 12-20 BUN 18 H 9-16 mg/dL Creat 0.71 0.5-1.4 mg/dL eGFR > 60 Chronic Kidney Disease: Estimated GFR < 60 mL/min/1.73m2 Severe Kidney Disease: Estimated GFR < 15 mL/min/1.73m2 FBS 83 60-99 mg/dL CA 10.3 H 8.4-10.2 mg/dL AST (GOT) 22 5-31 U/L ALT (GPT) 22 0-31 U/L Triglyceride 78 <150 mg/dL Desirable Triglyceride: less than 150 mg/dL Borderline High Triglyceride 150-199 mg/dL High Triglyceride: 200-499 mg/dL Very High Triglyceride: greater than or equal to 5OO mg/dL Cholesterol 215 H <200 mg/dL Desirable Cholesterol: less than 200 mg/dL Borderline High Cholesterol: 200-239 mg/dL High Cholesterol: greater than 239 mg/dL LDL Calculated 118 H <100 mg/dL Desirable LDL: less than 100 mg/dL Near Optimal/Above Optimal LDL: 110-129 mg/dL Borderline High LDL: 130-159 mg/dL High LDL: 160-189 mg/dL Very High LDL: greater than or equal to 190 mg/dL HDL 82 >40 mg/dL Desirable HDL: greater than 40 mg/dL Note: This HDL assay may give artificially low results in patients with liver disease. Vitamin D 25-OH 79.7 >30 ng/mL Health Based Reference Values* < 20 ng/mL Deficient 20-30 ng/mL Insufficient > 30 ng/mL Sufficient Coding Level of Care Code Est Pt Prev Care >65y(88382) Diagnoses Annual visit for general adult medical examination with abnormal findings Z00.01 Uterine leiomyoma, unspecified location D25.9 Uterine leiomyoma location: unspecified location Mixed stress and urge urinary incontinence N39.46 Urinary Incontinence type: mixed stress and urge incontinence Dyslipidemia E78.5 Age-related osteoporosis without current pathological fracture M81.0 Osteoporosis type: age-related Presence of current pathological fracture: without current pathological fracture Additional Codes PHQ-9 - 85760 - PHQ-9 Billing: Yes ([id number]) Assessment & Plan Assessment & Plan (1) Annual visit for general adult medical examination with abnormal findings: Code(s): Z00.01 - Encounter for general adult medical examination with abnormal findings Plan: Recent fasting lab results reviewed with patient. Continue with regular dental visit every 6 months and regular eye exams, at least every 2 years. Take adequate calcium in diet and vitamin-D 3 at 2000 IU per cap once a day, in addition to weight-bearing exercises to help maintain good muscle tone and weight control. Instructed to do self-breast exam, and continue to get yearly mammogram, up-to-date with all her vaccinations. Up-to-date with her colonoscopy screening (2) Uterine myoma: Code(s): D25.9 - Leiomyoma of uterus, unspecified Category: Medical Qualifiers: Uterine leiomyoma location: unspecified location Qualified Code(s): D25.9 - Leiomyoma of uterus, unspecified Plan: Followed by spiral winder (3) Urinary incontinence: Code(s): R32 - Unspecified urinary incontinence Category: Medical Qualifiers: Urinary Incontinence type: mixed stress and urge incontinence Qualified Code(s): N39.46 - Mixed incontinence Plan: Advised to do Kegel exercises, call if no improvement after 2 months (4) Dyslipidemia: Code(s): E78.5 - Hyperlipidemia, unspecified Category: Medical Plan: Fasting lipids are within normal limits, continued on rosuvastatin 5 mg taken 1 tablet twice a week, in addition to adherence to low-cholesterol diet and regular exercise, walks regularly for exercise (5) Osteoporosis: Comment: fosoamax 10/2020- 10/2022 DC due to worsening bone density Prolia 02/2023 Code(s): M81.0 - Age-related osteoporosis without current pathological fracture Category: Medical Qualifiers: Osteoporosis type: age-related Presence of current pathological fracture: without current pathological fracture Qualified Code(s): M81.0 - Age-related osteoporosis without current pathological fracture Plan: Currently on Prolia, followed by Rheumatology, has an upcoming appointment with new shell assembler later this year. Due for a repeat bone density scan this year. Continued on current dose of vitamin D3 supplements and calcium Orders: Orders Aspartate Amino Transferase 1 Year D25.9 - Leiomyoma of uterus, unspecified, E78.5 - Hyperlipidemia, unspecified, M81.0 - Age-related osteoporosis without current pathological fracture, N39.46 - Mixed incontinence Basic Metabolic Panel Fasting 1 Year D25.9 - Leiomyoma of uterus, unspecified, E78.5 - Hyperlipidemia, unspecified, M81.0 - Age-related osteoporosis without current pathological fracture, N39.46 - Mixed incontinence Lipid Panel 1 Year D25.9 - Leiomyoma of uterus, unspecified, E78.5 - Hyperlipidemia, unspecified, M81.0 - Age-related osteoporosis without current pathological fracture, N39.46 - Mixed incontinence Vitamin D 25-OH Total 1 Year D25.9 - Leiomyoma of uterus, unspecified, E78.5 - Hyperlipidemia, unspecified, M81.0 - Age-related osteoporosis without current pathological fracture, N39.46 - Mixed incontinence Alanine Aminotransferase 1 Year D25.9 - Leiomyoma of uterus, unspecified, E78.5 - Hyperlipidemia, unspecified, M81.0 - Age-related osteoporosis without current pathological fracture, N39.46 - Mixed incontinence Complete Blood Count Auto Diff 1 Year D25.9 - Leiomyoma of uterus, unspecified, E78.5 - Hyperlipidemia, unspecified, M81.0 - Age-related osteoporosis without current pathological fracture, N39.46 - Mixed incontinence
[2024-07-05 10:49] VITALS: BP 136/82; PULSE 70; RESP 15; TEMP 36.6; O2SAT 96; BMI 21.2
== END 2024-07-05 11:22 | disposition home or self-care (01) ==
LOC: HO.HMCC 09:30
PROVIDERS: PCP Internal Medicine; Visit Provider Internal Medicine
DX: Z00.00 Encounter for general adult medical examination without abnormal findings (principal); D25.9 Leiomyoma of uterus, unspecified; N39.46 Mixed incontinence; E78.5 Hyperlipidemia, unspecified; M81.0 Age-related osteoporosis without current pathological fracture

== ENCOUNTER → 2024-07-05 09:29 | Outpatient (BNVA) | payer MEDICARE, OTHER, SELFPAY | PROVIDERS: PCP Internal Medicine; Visit Provider Internal Medicine | DX: Z00.01 Encounter for general adult medical examination with abnormal findings (principal); D25.9 Leiomyoma of uterus, unspecified; N39.46 Mixed incontinence; E78.5 Hyperlipidemia, unspecified; M81.0 Age-related osteoporosis without current pathological fracture | CPT/HCPCS: 96127; 99397 ==

== ENCOUNTER 2024-08-08 07:36 | Outpatient (REF) | payer MEDICARE, OTHER, SELFPAY ==
--- OUTSIDE RECORDS SUMMARY | 2024-08-08 07:38 | XMS_ITS | Patient Health Record ---
Author Organization [facility] Address [address] [place] [address] Care Team Providers Care Welder Assembler Name Role Phone Lesley PORRAS, Cassia Castillo Primary Care Provider Un available BethanieIvette rebolledo Unavailable [phone] Allergies Allergen (clinical drug ingredient) Drug/Non Drug [...] Inc [address] [place] [address] [id number] Carl Forde Self - patient is the insured [facility] [address] [place] [address] [id number] Carl Forde Self - patient is the insured Medical (General) History Medical History History ICD Code Anxiety Arthritis CAD (Cholesterol) Measles Chicken pox Renal Cyst Uterine Fibroid Osteoporosis Renal Cysts, Aquired Uterine fibroids Surgical History Surgery Date(Month/Year) Tonsillectomy 1960 Left knee- Bone fragment removal 1967 Tubal Ligation 1987 Trigger Thumb 07/2007
[2024-08-08 11:16] LABS: Albumin Level 4.6 g/dL (3.5-5.0); Anion Gap 12 (12-20); Blood Urea Nitrogen 22 mg/dL (9-16); Calcium 10.2 mg/dL (8.4-10.2); Carbon Dioxide 28 mmol/L (22-29); Chloride 106 mmol/L (96-108); Estimated Glomerular Filt Rate > 60; Glucose Random 76 mg/dL (60-115); Potassium 4.3 mmol/L (3.3-5.1); Sodium 142 mmol/L (135-145)
== END 2024-08-08 07:37 | disposition home or self-care (01) ==
LOC: HO.HMGCLDS 07:36
PROVIDERS: PCP Internal Medicine; Referring Provider Student in an Organized Health Care Education/Training Program; Visit Provider Student in an Organized Health Care Education/Training Program
DX: M81.0 Age-related osteoporosis without current pathological fracture (principal); E55.9 Vitamin D deficiency, unspecified
CPT/HCPCS: 36415; 80048; 82040; 82306

== ENCOUNTER 2024-08-15 09:45 | Outpatient (AMB) | payer MEDICARE, OTHER, SELFPAY ==
--- NOTE | 2024-08-15 10:04 | A.OFFVIS_ITS ---
Vital Signs 08/15/24 10:09 Height 4 ft 11 in Weight 103 lb 9.876 oz BMI 20.9 BP 132/80 Blood Pressure Location Rt brachial Position Sitting Pulse 62 Pulse Source Pulse Oximeter Pulse Oximetry (%) 92 Oxygen Delivery Method Room Air Intake Visit Reasons: Osteoporosis/Prolia Intake Note: Patient presents for Osteoporosis and Prolia injection follow up. Allergies penicillin V Allergy (Unknown, Verified 08/15/24 10:08) diarrhea Medication List - Last Reconciled 08/15/24 by Luly Bradshaw MD acetaminophen ER (Tylenol Arthritis Pain) 650 mg PO Q12H calcium 600 mg PO BID cholecalciferol (vitamin D3) 2,000 units PO DAILY denosumab (Prolia) 60 mg subcut [id number] docusate sodium 100 mg PO DAILY rosuvastatin 5 mg PO 2XW 90 days HPI Comments Details: Patient is a 74-year-old female with hyperlipidemia, polyarticular osteoarthritis and osteoporosis here today for follow up Interval History: Patient last seen 02/14/[address] Manning. At that time she was following up for her osteoporosis and received her Prolia injection without any issue. Patient states that at about 17:00 that day she noted feeling very hot and itchy around her neck without any difficulty swallowing or associated rashes. This resolved on its own. This was her 3rd Prolia injection Symptoms resolved in about 5 days Never happened before Since then had a fall on ice in the winter but did not fracture any bones Rheumatologic History: Initial history: This is a 72 year old female who was referred by OBGYN for osteoporosis management. She was diagnosed with osteoporosis in 2020 and was started on alendronate. Her most recent DEXA scan shows drop in her bone density. Patient states that she has been having bilateral hand pain from arthritis for a few years now. She takes Tylenol which provides some relief. She reached menopause at age 54. Stated that her mother had osteoporosis and was on treatment for it. She denies recurrent falls. Current Rheumatology Medication(s): Prolia 60mg SC every 6 months Vit D 1000U daily PFSH Medical History Dyslipidemia Plantar fasciitis, bilateral Surgical History H/O: knee surgery Family History Brother WPW (Vpain-Jimamrxbj-Vtboz syndrome) Sister Atrial fibrillation Arthritis Mother Arthritis Social History Alcohol intake: current Alcohol intake frequency: holidays/special occasions only Patient Tobacco Use Status: Former Tobacco user e-Cigarette/Vaping Use: Never Used service: No Current occupational status: retired Cognitive needs: No Hearing needs: No Vision needs: Yes Review of Systems Const Details: Review of Systems Constitutional: Denies fever, chills, weight loss ENT: Denies vision changes, eye pain or eye redness, dental caries, dry mouth GI: Denies nausea, vomiting, diarrhea, abdominal pain, change in BM Pulm: Denies SOB, RIGGINS, hemoptysis, wheezing Cards: Denies chest pain, palpitations Skin: Denies Raynaud's, rash, nail changes, photosensitivity, MEDICAL 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 Well appearing and in no apparent painful distress HEENT Conjunctiva and sclera clear. ?No lymphadenopathy. ? CHEST/RESPIRATORY SYSTEM Normal respiratory effort and able to speak in complete sentences. ?Clear to auscultation bilaterally. ?No crackles, rales, rhonchi, wheezes heard. CARDIAC SYSTEM Regular rate and rhythm. ?S1 and S2 heard no murmurs. ?Radial pulses intact bilaterally MSK Hands: ?Able to make a fist. No synovitis noted to the MCPs, PIPs or DIPs. ?No tenderness to palpation of these joints. Herbeden's nodes noted Wrists: ?Full range of motion at the wrists without pain. ?No tenderness to palpation or synovitis noted to the wrists. Elbows: Full range of motion without pain. No tenderness, weakness, swelling, increased warmth or erythema. Shoulders: Full range of active range of motion without pain. No tenderness, weakness, swelling, increased warmth or erythema. Hips: Full range of motion without pain. Knees: ?Full range of motion. ?No tenderness, swelling, increased warmth or erythema.?Crepitations felt Ankles: Full range of motion. ?No tenderness, swelling, increased warmth or erythema.? Feet: ?Negative squeeze test. ?No tenderness to palpation or swelling of the MTPs. Tender points:?No tenderness to palpation of the bilateral trapezius, supraspinatus, greater trochanters, anterior costochondral junctions, bilateral gluteal areas, bilateral suboccipital muscle insertions SKIN Skin intact without rashes. 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 She reports before administration that at last injection she developed itchiness and burning in neck area. Advised with Dr. Bradshaw before injection if ok to proceed. Dr. Bradshaw spoke with patient prior to injection. Patient advised that if any adverse reactions were to occur later in the day to call the office. Results Reviewed Results Reviewed: Laboratory Tests 07/03/24 08/08/24 07:07 07:46 WBC 4.5 L RBC 4.25 Hgb 12.8 Hct 39.4 Plt Count 241 Sodium 142 Potassium 4.3 Chloride 106 Carbon Dioxide 28 BUN 22 H Creatinine 0.67 Calcium 10.2 25-OH Vitamin D Total 79.7 70.0 DEXA 10/2022 FINDINGS: LEFT FEMUR, NECK: Current: BMD 0.576 g/cm2, Z-score -1.2, T-score -3.3, osteoporosis. Baseline: BMD 0.562 g/cm2. LEFT FEMUR, TOTAL: Current: BMD 0.515 g/cm2, Z-score -2.0, T-score -3.9, osteoporosis, 4.5% decrease from baseline (<5% change is not significant). Baseline: BMD 0.539 g/cm2. AP SPINE L1-L4: Current: BMD 0.849 g/cm2, Z-score -0.5, T-score -2.8, osteoporosis, 3.7% increase from baseline (<5% change is not significant). Baseline: BMD 0.819 g/cm2. Assessment & Plan Assessment & Plan (1) Osteoporosis: Comment: DEXA 10/2020: AP Spine -3.0, Left femur neck -3.4, Left femur total -3.7 DEXA 10/2022: AP Spine -2.8, Left femur neck -3.3, Left femur total -3.9 fosomax 10/2020- 10/2022 DC due to worsening bone density Prolia 02/2023 Code(s): M81.0 - Age-related osteoporosis without current pathological fracture Category: Medical Qualifiers: Osteoporosis type: age-related Presence of current pathological fracture: without current pathological fracture Qualified Code(s): M81.0 - Age- related osteoporosis without current pathological fracture Plan: #Osteoporosis Patient is a 74-year-old female with osteoporosis here today for follow up. Had what could potentially be a mild allergic reaction to her Prolia after the last dose. Since there was no associated life-threatening reactions we will proceed with her 4th dose of Prolia today. 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 Mild increased risk of infections due to RANKL on T helper cells, increased risk of hypocalcemia especially in CKD patients Keep vitamin-D at least 35 ng/mL Advised to delay non emergent dental procedures to toward the end of the 6 month cycle and if they plan to stop denosumab would need to continue antiresorptive to maintain the effects of denosumabe Plan I spent 26 minutes reviewing the record and labs, taking a history, examining th e patient, discussing the treatment plan, ordering diagnostic work up and documenting in the medical record Orders: Orders XR DEXA axial skeleton 10/30/24 E55.9 - Vitamin D deficiency, unspecified, M81.0 - Age-related osteoporosis without current pathological fracture AMB Denosumab Injection Practice Supplied Today M81.0 - Age-related osteoporosis without current pathological fracture Vitamin D 25-OH Total 6 Months E55.9 - Vitamin D deficiency, unspecified, M81.0 - Age-related osteoporosis without current pathological fracture Comprehensive Met. Panel 6 Months E55.9 - Vitamin D deficiency, unspecified, M81.0 - Age-related osteoporosis without current pathological fracture Coding Level of Care Code Est Pt Level 3 (25108) Complex EM visit Add On G2211 Diagnoses Age-related osteoporosis without current pathological fracture M81.0 Osteoporosis type: age-related Presence of current pathological fracture: without current pathological fracture Encounter for monitoring denosumab therapy Z51.81; Z79.620
[2024-08-15 10:09] VITALS: BP 132/80; PULSE 62; O2SAT 92; BMI 20.9
--- OUTSIDE RECORDS SUMMARY | 2024-08-15 10:53 | XMS_ITS | Patient Health Record ---
Author Organization [facility] Address [address] [place] [address] Care Team Providers Care International Organizer Name Role Phone Lesley PORRAS, Cassia Castillo Primary Care Provider Un available BethanieIvette rebolledo Unavailable [phone] Allergies Allergen (clinical drug ingredient) Drug/Non Drug [...] Inc [address] [place] [address] [id number] Carl Forde Self - patient is the insured [facility] [address] [facility] [place] [address] [id number] Carl Forde Self - patient is the insured Medical (General) History Medical History History ICD Code Anxiety Arthritis CAD (Cholesterol) Measles Chicken pox Renal Cyst Uterine Fibroid Osteoporosis Renal Cysts, Aquired Uterine fibroids Surgical History Surgery Date(Month/Year) Tonsillectomy 1960 Left knee- Bone fragment removal 1967 Tubal Ligation 1987 Trigger Thumb 07/2007
== END 2024-08-15 10:52 | disposition home or self-care (01) ==
LOC: HO.RHE 09:46
PROVIDERS: PCP Internal Medicine; Visit Provider Student in an Organized Health Care Education/Training Program
DX: M81.0 Age-related osteoporosis without current pathological fracture (principal); Z51.81 Encounter for therapeutic drug level monitoring; Z79.620 Long term (current) use of immunosuppressive biologic
CPT/HCPCS: 99213; G2211

== ENCOUNTER → 2024-08-15 09:45 | Outpatient (BNVA) | payer MEDICARE, OTHER, SELFPAY | PROVIDERS: PCP Internal Medicine; Visit Provider Student in an Organized Health Care Education/Training Program | DX: M81.0 Age-related osteoporosis without current pathological fracture (principal); Z51.81 Encounter for therapeutic drug level monitoring; Z79.620 Long term (current) use of immunosuppressive biologic | CPT/HCPCS: 96372; 99212; J0897 ==

== ENCOUNTER 2024-11-07 08:00 | Outpatient (REF) | payer MEDICARE, OTHER, SELFPAY ==
--- NOTE | ~2024-11-07 | MM_ITS ---
EXAMINATION: MM SCREENING DIGITAL BREAST TOMOSYNTHESIS, BILATERAL CLINICAL INFORMATION: Screening. Asymptomatic. COMPARISON: Mammography: Comparison is made with available priors TECHNIQUE: Digital breast mammography with tomosynthesis is performed in both the craniocaudal and mediolateral oblique views along with computer-aided detection (CAD). FINDINGS: The breasts are heterogeneously dense, which may obscure small masses (ACR BI-RADS breast composition Category c). There are no significant masses, abnormal calcifications, or other abnormalities. MM/MM tomosynthesis screening BI IMPRESSION: No mammographic evidence of malignancy. ASSESSMENT: BI-RADS BI-RADS 1 - Negative RECOMMENDATION: Routine annual mammography screening. 1 year F/U This examination should not preclude the clinical evaluation of a suspicious palpable abnormality. This patient's information was entered into a reminder system with a target due date for their next mammogram. Electronically signed by: Shelbi Gould DO 11/07/2024 07:58 PM EDT
--- OUTSIDE RECORDS SUMMARY | 2024-11-07 08:05 | XMS_ITS | Patient Health Record ---
Author Organization [facility] Address [address] [place] [address] Care Team Providers Care Physiological Chemist Name Role Phone Lesley PORRAS, Cassia Castillo Primary Care Provider Un available BethanieIvette rebolledo Unavailable [phone] Allergies Allergen (clinical drug ingredient) Drug/Non Drug [...] Inc [address] [place] [address] [id number] Carl Forde Self - patient is the insured [facility] [address] [facility] [place] [address] [phone] [id number] Carl Forde Self - patient is the insured Medical (General) History Medical History History ICD Code Anxiety Arthritis CAD (Cholesterol) Measles Chicken pox Renal Cyst Uterine Fibroid Osteoporosis Renal Cysts, Aquired Uterine fibroids Surgical History Surgery Date(Month/Year) Tonsillectomy 1960 Left knee- Bone fragment removal 1967 Tubal Ligation 1987 Trigger Thumb 07/2007
--- OUTSIDE RECORDS SUMMARY | 2024-11-07 08:05 | XMS_ITS | Patient Health Record ---
Author Organization [facility] Address [address] [place] [address] Care Team Providers Care Intermission Coordinator Name Role Phone Lesley PORRAS, Cassia Primary Care Provider Werner Salcedo [phone] Allergies Allergen (clinical drug ingredient) Drug/Non Drug Allergy documented on EMR Reaction Allergy Type Onset Date Status amoxicillin Amoxicillin Unknown Drug Allergy Act long Reason For Referral No Information Problems Problem Type SNOMED Code ICD Code Onset Dates Problem Status W/U Status Risk Notes Problem [id number] Encounter for screening for malignant neoplasm of colon (Z12.11) Active confirmed Problem Screening for malignant neoplasm of rectum (185905749) Encounter for screening for malignant neoplasm of rectum (Z12.12) Active confirmed Problem 84620814 Preprocedural examination (Z01.818) Active confirmed Plan Of Treatment Future Test Test Name Order Date COLONOSCOPY 10/02/2015 Insurance Providers Payer Name Payer Address Payer Phone Subscriber Number Group Number Insured Name Patient Relationship to Insured Coverage Start Date Coverage End Date [employer] [address] [place] [phone] [id number] NANCY WADE Self - patient is the insured Medical (General) History Medical History History ICD Code Denies [place],DM,CVA,Lung disease,renal dise ase Negative colonoscopy at [facility] > 10 yrs ago--however, she reports that it was limited because her blood pressure dropped during the procedure Surgical History Surgery Date(Month/Year) tonsillectomy 1958 knee surgery 1967 thumb surgery 2009
== END 2024-11-07 08:01 | disposition home or self-care (01) ==
LOC: HO.MAMMO 08:00
PROVIDERS: PCP Internal Medicine; Visit Provider Internal Medicine
DX: Z12.31 Encounter for screening mammogram for malignant neoplasm of breast (principal)
CPT/HCPCS: 77063; 77067

== ENCOUNTER → 2024-11-07 08:15 | Outpatient (BNV) | payer MEDICARE, OTHER, SELFPAY | PROVIDERS: PCP Internal Medicine; Visit Provider Internal Medicine | DX: Z12.31 Encounter for screening mammogram for malignant neoplasm of breast (principal) | CPT/HCPCS: 77063; 77067 ==

== ENCOUNTER 2024-11-14 08:45 | Outpatient (AMB) | payer MEDICARE, OTHER, SELFPAY ==
--- NOTE | 2024-11-14 08:56 | MHC.OFFVIS ---
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 No complaints, no pelvic pressure, pain or vaginal bleeding. 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 The patient is scheduled for pelvic ultrasound in a week for myoma follow-up [facility] Medical History Dyslipidemia Plantar fasciitis, bilateral Surgical History H/O: knee surgery Family History Brother WPW (Yvoyx-Iuzekbwtm-Nbdsc syndrome) Sister Atrial fibrillation Arthritis Mother Arthritis Social History Alcohol intake: current Alcohol intake frequency: holidays/special occasions only Patient Tobacco Use Status: Former Tobacco user e-Cigarette/Vaping Use: Never Used service: No Current occupational status: retired Cognitive needs: No Hearing needs: No Vision needs: Yes Female Reproductive History Menstrual Menopause type: natural Date of Mammogram: 11/07/24 Review of Systems Const All systems reviewed & are unremarkable except as noted in HPI and below Card Reports as per HPI Resp Reports as per HPI GI Reports as per HPI and Reports no additional complaints Reports as per HPI Physical Exam Const General: cooperative, healthy appearing and comfortable Chest Chest palpation & inspection: normal inspection of the chest and normal palpation of entire chest wall Breast/axilla inspection: normal inspection of the breasts and normal inspection of the axillae Breast/axilla palpation: normal palpation of the breasts, normal palpation of the axillae and no axillary lymphadenopathy Resp Effort & Inspection: normal respiratory effort Auscultation: clear to auscultation bilaterally Percussion: percussion normal Cardio Palpation: normal PMI Rate: regular rate Rhythm: regular rhythm Heart sounds: no murmurs and no rubs Peripheral pulses: Peripheral pulses 2+ throughout GI Inspection: Yes normal to inspection Palpation (GI): Soft to palpation, nontender, no guarding, not rigid and No hepatosplenomegaly present Percussion: Yes normal to percussion Auscultation: normal bowel sounds Rectal Exam - Female: deferred General: Yes bladder normal to palpation External Female Exam: No lesion Speculum Exam - Vagina: normal appearance of the vagina, normal palpation, normal vaginal discharge and not erythematous Speculum Exam - Cervix: normal appearance of the cervix and normal palpation Bimanual exam- vagina & uterus: normal bimanual exam, normal palpation, uterine size normal, bladder normal to palpation, consistency normal and normal palpation Bimanual Exam- Adnexa, other: normal adnexae, no masses and no tenderness Assessment & Plan Assessment & Plan (1) Well woman exam: Code(s): Z01.419 - Encounter for gynecological examination (general) (routine) without abnormal findings Category: Medical Plan: Co testing not indicated since the patient 's age is above 65 with no history of abnormal Pap smears last 25 years, adequately screen for the last 10 years with no history of immunosuppression. Counseled the patient about the recommended dietary allowance of 1200 mg of Calcium & 800 IU of vitamin D. Instructions given the patient to schedule next screening Mammogram in 12/01. DEXA scan scheduled in January and a follow-up appointment with Rheumatology for Prolia shot in February . The patient was instructed to perform monthly self-breast exams and to schedule a 2 week DEXA scan follow-up appointment and an annual exam in a year; All questions answered and the patient verbalized understanding. Orders: Orders XR DEXA axial skeleton Today Z78.0 - Asymptomatic menopausal state Coding Level of Care Code Est Pt Prev Care >65y(66577) Diagnoses Well woman exam Z01.419
[2024-11-14 09:02] VITALS: BP 132/70; BMI 20.4
--- OUTSIDE RECORDS SUMMARY | 2024-11-14 09:53 | XMS_ITS | Patient Health Record ---
[facility] Address [address] [place] [address] Care Team Providers Care Night Shift Name Role Phone Lesley PORRAS, Cassia Castillo Primary Care Provider Un available BethanieIvette rebolledo Unavailable [phone] Allergies Allergen (clinical drug ingredient) Drug/Non Drug [...] Inc [address] [place] [address] [id number] Carl Forde Self - patient is the insured [facility] [address] [place] [address] [phone] [id number] Carl Forde Self - patient is the insured Medical (General) History Medical History History ICD Code Anxiety Arthritis CAD (Cholesterol) Measles Chicken pox Renal Cyst Uterine Fibroid Osteoporosis Renal Cysts, Aquired Uterine fibroids Surgical History Surgery Date(Month/Year) Tonsillectomy 1960 Left knee- Bone fragment removal 1967 Tubal Ligation 1987 Trigger Thumb 07/2007
--- OUTSIDE RECORDS SUMMARY | 2024-11-14 09:53 | XMS_ITS | Patient Health Record ---
Author Organization [facility] Address [address] [place] [address] Care Team Providers Care Lead Inspector Name Role Phone Lesley PORRAS, Cassia Primary Care Provider Werner Salcedo [phone] Allergies Allergen (clinical drug ingredient) Drug/Non Drug Allergy documented on EMR Reaction Allergy Type Onset Date Status amoxicillin Amoxicillin Unknown Drug Allergy Act long Reason For Referral No Information Problems Problem Type SNOMED Code ICD Code Onset Dates Problem Status W/U Status Risk Notes Problem 929191570 Encounter for screening for malignant neoplasm of colon (Z12.11) Active confirmed Problem Screening for malignant neoplasm of rectum (078502116) Encounter for screening for malignant neoplasm of rectum (Z12.12) Active confirmed Problem 14940200 Preprocedural examination (Z01.818) Active confirmed Plan Of Treatment Future Test Test Name Order Date COLONOSCOPY 10/02/2015 Insurance Providers Payer Name Payer Address Payer Phone Subscriber Number Group Number Insured Name Patient Relationship to Insured Coverage Start Date Coverage End Date [employer] [address] [place] [phone] [id number] NANCY WADE Self - patient is the insured Medical (General) History Medical History History ICD Code Denies [place],DM,CVA,Lung disease,renal dise ase Negative colonoscopy at [facility] > 10 yrs ago--however, she reports that it was limited because her blood pressure dropped during the procedure Surgical History Surgery Date(Month/Year) tonsillectomy 1958 knee surgery 1967 thumb surgery 2009
== END 2024-11-14 09:20 | disposition home or self-care (01) ==
LOC: HO.HWS 08:45
PROVIDERS: PCP Internal Medicine; Visit Provider Obstetrics & Gynecology
DX: Z01.419 Encounter for gynecological examination (general) (routine) without abnormal findings (principal)
CPT/HCPCS: G0101

== ENCOUNTER → 2024-11-14 08:45 | Outpatient (BNVA) | payer MEDICARE, OTHER, SELFPAY | PROVIDERS: PCP Internal Medicine; Visit Provider Obstetrics & Gynecology | DX: Z01.419 Encounter for gynecological examination (general) (routine) without abnormal findings (principal) | CPT/HCPCS: G0101 ==

== ENCOUNTER 2024-11-21 14:08 | Outpatient (REF) | payer MEDICARE, OTHER, SELFPAY ==
--- NOTE | ~2024-11-21 | US_ITS ---
EXAMINATION: US PELVIS CLINICAL INFORMATION: N 83.209. Unspecified ovarian cyst. COMPARISON: September 16, 2022 reporting a 3.5 cm fibroid in the anterior body fundus. TECHNIQUE: Ultrasound of the pelvis is performed using both transabdominal and transvaginal transducers along with Doppler. Transvaginal imaging is performed due to inadequate visualization transabdominally. FINDINGS: Uterus: The uterus is anteversion flexion and measures 7 x 4 x 4 cm. Volume: 55 cc. The double wall endometrial thickness is 3 mm. There is a 2.3 cm isoechoic lesion in the anterior fundus of the uterus previously measured 3.5 cm trace of fluid in the uterine cavity. Adnexa: The ovaries are identified with the flow on color Doppler interrogation.. No gross soft tissue or cystic lesion seen either adnexa. No free fluid in the cul-de-sac. Right ovary measures 2 x 1 x 1 cm. Volume: 1 cc Left ovary measures 1 x 1 x 1 cm. Volume: 1 cc. US/US pelvic and transvaginal IMPRESSION: 2.3 cm uterine fibroid, smaller. Endometrial stripe, 3 mm. No gross solid or cystic lesion in either ovary. Electronically signed by: Spike Dueñas MD 11/21/2024 02:55 PM EDT
--- OUTSIDE RECORDS SUMMARY | 2024-11-21 17:57 | XMS_ITS | Patient Health Record ---
Author Organization [facility] Address [address] [place] [address] Care Team Providers Care Director Of Ancillary Services Name Role Phone Lesley PORRAS, Cassia Primary Care Provider Werner Salcedo [phone] Allergies Allergen (clinical drug ingredient) Drug/Non Drug Allergy documented on EMR Reaction Allergy Type Onset Date Status amoxicillin Amoxicillin Unknown Drug Allergy Act long Reason For Referral No Information Problems Problem Type SNOMED Code ICD Code Onset Dates Problem Status W/U Status Risk Notes Problem 989747474 Encounter for screening for malignant neoplasm of colon (Z12.11) Active confirmed Problem Screening for malignant neoplasm of rectum (047282413) Encounter for screening for malignant neoplasm of rectum (Z12.12) Active confirmed Problem 93877106 Preprocedural examination (Z01.818) Active confirmed Plan Of Treatment Future Test Test Name Order Date COLONOSCOPY 10/02/2015 Insurance Providers Payer Name Payer Address Payer Phone Subscriber Number Group Number Insured Name Patient Relationship to Insured Coverage Start Date Coverage End Date [employer] [address] [place] [phone] [id number] NANCY WADE Self - patient is the insured Medical (General) History Medical History History ICD Code Denies [place],DM,CVA,Lung disease,renal dise ase Negative colonoscopy at [facility] > 10 yrs ago--however, she reports that it was limited because her blood pressure dropped during the procedure Surgical History Surgery Date(Month/Year) tonsillectomy 1958 knee surgery 1967 thumb surgery 2009
--- OUTSIDE RECORDS SUMMARY | 2024-11-21 17:58 | XMS_ITS | Patient Health Record ---
[facility] Address [address] [place] [address] Care Team Providers Care Dough Braker Name Role Phone Lesley PORRAS, Cassia Castillo Primary Care Provider Un available BethanieIvette rebolledo Unavailable [phone] Allergies Allergen (clinical drug ingredient) Drug/Non Drug [...] Inc [address] [place] [address] [id number] Carl Forde Self - patient is the insured [facility] [address] [place] [address] [id number] Carl Forde Self - patient is the insured Medical (General) History Medical History History ICD Code Anxiety Arthritis CAD (Cholesterol) Measles Chicken pox Renal Cyst Uterine Fibroid Osteoporosis Renal Cysts, Aquired Uterine fibroids Surgical History Surgery Date(Month/Year) Tonsillectomy 1960 Left knee- Bone fragment removal 1967 Tubal Ligation 1987 Trigger Thumb 07/2007
== END 2024-11-21 14:09 | disposition home or self-care (01) ==
LOC: HO.HMGCX 14:08
PROVIDERS: PCP Internal Medicine; Visit Provider Obstetrics & Gynecology
DX: N83.201 Unspecified ovarian cyst, right side (principal); N83.202 Unspecified ovarian cyst, left side
CPT/HCPCS: 76830; 76856

== ENCOUNTER → 2024-11-21 14:27 | Outpatient (BNV) | payer MEDICARE, OTHER, SELFPAY | PROVIDERS: PCP Internal Medicine; Visit Provider Radiology Diagnostic Radiology | DX: D25.9 Leiomyoma of uterus, unspecified (principal) | CPT/HCPCS: 76830; 76856 ==

== ENCOUNTER 2024-12-04 12:51 | Outpatient (AMB) | payer MEDICARE, OTHER, SELFPAY ==
--- NOTE | 2024-12-04 13:03 | MHC.OFFVIS ---
Vital Signs 12/04/24 13:05 Height 4 ft 11 in Weight 101 lb BMI 20.4 Intake Visit Reasons: ultrasound follow up Allergies penicillin V Allergy (Unknown, Verified 11/14/24 09:03) diarrhea HPI Comments Details: Presenting for ultrasound follow-up with no complaints no pelvic pressure, pain or bleeding. 11/30 pelvic ultrasound showed the following: Uterus: The uterus is anteversion flexion and measures 7 x 4 x 4 cm. Volume: 55 cc. The double wall endometrial thickness is 3 mm. There is a 2.3 cm isoechoic lesion in the anterior fundus of the uterus previously measured 3.5 cm trace of fluid in the uterine cavity. Adnexa: The ovaries are identified with the flow on color Doppler interrogation.. No gross soft tissue or cystic lesion seen either adnexa. No free fluid in the cul-de-sac. Right ovary measures 2 x 1 x 1 cm. Volume: 1 cc Left ovary measures 1 x 1 x 1 cm. Volume: 1 cc. US/US pelvic and transvaginal IMPRESSION: 2.3 cm uterine fibroid, smaller. Endometrial stripe, 3 mm. No gross solid or cystic lesion in either ovary. [facility] Medical History Dyslipidemia Plantar fasciitis, bilateral Surgical History H/O: knee surgery Family History Brother WPW (Dqfqu-Bahllpnvn-Fumyi syndrome) Sister Atrial fibrillation Arthritis Mother Arthritis Social History Alcohol intake: current Alcohol intake frequency: holidays/special occasions only Patient Tobacco Use Status: Former Tobacco user e-Cigarette/Vaping Use: Never Used service: No Current occupational status: retired Cognitive needs: No Hearing needs: No Vision needs: Yes Review of Systems Const All systems reviewed & are unremarkable except as noted in HPI and below Reports as per HPI and Reports no additional complaints GI Reports no additional complaints Reports no additional complaints Physical Exam Vital Signs: BMI result Body Mass Index 20.4 Assessment & Plan Assessment & Plan (1) Uterine myoma: Code(s): D25.9 - Leiomyoma of uterus, unspecified Category: Medical Qualifiers: Uterine leiomyoma location: unspecified location Qualified Code(s): D25.9 - Leiomyoma of uterus, unspecified Plan: Discussed with the patient the findings on pelvic ultrasound & the risk of myosarcoma; in addition reviewed with the patient that malignancy and pre malignancy cannot be ruled out without hysterectomy for pathological evaluation ; furthermore, explained to the patient the limitation of pelvic ultrasound and endometrial biopsy in the setting. Discussed with the patient the options of treatment including expectant management versus hysterectomy; the pros and cons, risks benefits of each approach were discussed with the patient including the fact that in cases of myosarcoma, surgical treatment can lead to early diagnosis and positively affects the prognosis; after further discussion, the patient decided to proceed with expectant management. Will repeat pelvic ultrasound periodically. Instructions given to patient to call in case any of the following occurs: pressure symptoms, abnormal uterine bleeding, pelvic pain; and to schedule a 12-months pelvic ultrasound (order placed) and a follow-up appointment . All questions answered, the patient verbalized understanding and agreed with the plan . Orders: Orders US pelvic and transvaginal 1 Year D25.9 - Leiomyoma of uterus, unspecified Coding Level of Care Code Est Pt Level 3 (72398) Diagnoses Uterine leiomyoma, unspecified location D25.9 Uterine leiomyoma location: unspecified location
[2024-12-04 13:05] VITALS: BMI 20.4
--- OUTSIDE RECORDS SUMMARY | 2024-12-04 13:58 | XMS_ITS | Patient Health Record ---
[facility] Address [address] [place] [address] Care Team Providers Care Payroll Human Resources Assistant Name Role Phone Lesley PORRAS, Casisa Castillo Primary Care Provider Un available BethanieIvette rebolledo Unavailable [phone] Allergies Allergen (clinical drug ingredient) Drug/Non Drug [...] Inc [address] [place] [address] [id number] Carl Forde Self - patient is the insured [facility] [address] [facility] [place] [address] [id number] Carl Forde Self - patient is the insured Medical (General) History Medical History History ICD Code Anxiety Arthritis CAD (Cholesterol) Measles Chicken pox Renal Cyst Uterine Fibroid Osteoporosis Renal Cysts, Aquired Uterine fibroids Surgical History Surgery Date(Month/Year) Tonsillectomy 1960 Left knee- Bone fragment removal 1967 Tubal Ligation 1987 Trigger Thumb 07/2007
--- OUTSIDE RECORDS SUMMARY | 2024-12-04 13:58 | XMS_ITS | Patient Health Record ---
Author Organization [facility] Address [address] [place] [address] Care Team Providers Care Concrete Panel Installer Name Role Phone Lesley PORRAS, Cassia Primary Care Provider Werner Salcedo [phone] Allergies Allergen (clinical drug ingredient) Drug/Non Drug Allergy documented on EMR Reaction Allergy Type Onset Date Status amoxicillin Amoxicillin Unknown Drug Allergy Act long Reason For Referral No Information Problems Problem Type SNOMED Code ICD Code Onset Dates Problem Status W/U Status Risk Notes Problem 704996290 Encounter for screening for malignant neoplasm of colon (Z12.11) Active confirmed Problem Screening for malignant neoplasm of rectum (487657357) Encounter for screening for malignant neoplasm of rectum (Z12.12) Active confirmed Problem 77207532 Preprocedural examination (Z01.818) Active confirmed Plan Of Treatment Future Test Test Name Order Date COLONOSCOPY 10/02/2015 Insurance Providers Payer Name Payer Address Payer Phone Subscriber Number Group Number Insured Name Patient Relationship to Insured Coverage Start Date Coverage End Date [employer] [address] [place] [phone] [id number] NANCY WADE Self - patient is the insured Medical (General) History Medical History History ICD Code Denies [place],DM,CVA,Lung disease,renal dise ase Negative colonoscopy at [facility] > 10 yrs ago--however, she reports that it was limited because her blood pressure dropped during the procedure Surgical History Surgery Date(Month/Year) tonsillectomy 1958 knee surgery 1967 thumb surgery 2009
== END 2024-12-04 13:40 | disposition home or self-care (01) ==
LOC: HO.HWS 12:52
PROVIDERS: PCP Internal Medicine; Visit Provider Obstetrics & Gynecology
DX: D25.9 Leiomyoma of uterus, unspecified (principal)
CPT/HCPCS: 99213

== ENCOUNTER → 2024-12-04 12:51 | Outpatient (BNVA) | payer MEDICARE, OTHER, SELFPAY | PROVIDERS: PCP Internal Medicine; Visit Provider Obstetrics & Gynecology | DX: Z71.2 Person consulting for explanation of examination or test findings (principal); D25.9 Leiomyoma of uterus, unspecified | CPT/HCPCS: 99212 ==

== ENCOUNTER 2025-01-17 12:09 | Outpatient (REF) | payer MEDICARE, OTHER, SELFPAY ==
--- NOTE | ~2025-01-17 | MM_ITS ---
STUDY: DUAL ENERGY X-RAY ABSORPTIOMETRY / DXA REASON FOR EXAM: Female, 74 years old M81.0 - Age-related osteoporosis without current pathological fracture TECHNIQUE: Bone Mineral Density (BMD) measurements of the lumbar spine and left hip were obtained using [employer] COMPARISON: October 29, 2022 FINDINGS: L1-L4 BMD: 0.929 g/cm2 L1-L4 T score: -2.1. This corresponds to osteopenia. This represents a 9.4* % increase in bone density compared with prior exam from October 29, 2022. Left femoral neck BMD: 0.603 g/cm2 Left femoral neck T score: -3.1. This corresponds to osteoporosis. Left total hip BMD: 0.579 g/cm2 Left total hip T score: -3.4. This corresponds to osteoporosis. This represents a 12.4* % increase in bone density compared with prior exam from October 29, 2022. * - Indicates a statistically significant change. MM/XR DEXA axial skeleton IMPRESSION: Osteoporosis Reference Information: The T-score is the number of standard deviations above or below the standard which is normal for young adults at their peak bone mineral density. The World Health Organization (WHO) interprets the T-scores as follows: At or above -1 SD Normal bone density Between -1 and -2.5 SD Osteopenia At or below -2.5 SD Osteoporosis Electronically signed by: Jordy Martinez MD 01/17/2025 02:30 PM [facility]
--- OUTSIDE RECORDS SUMMARY | 2025-01-17 14:55 | XMS_ITS | Patient Health Record ---
Author Organization [facility] Address [address] [place] [address] Care Team Providers Care Senior Reservations Agent Name Role Phone Lesley PORRAS, Cassia Primary Care Provider Werner Salcedo [phone] Allergies Allergen (clinical drug ingredient) Drug/Non Drug Allergy documented on EMR Reaction Allergy Type Onset Date Status amoxicillin Amoxicillin Unknown Drug Allergy Act long Reason For Referral No Information Problems Problem Type SNOMED Code ICD Code Onset Dates Problem Status W/U Status Risk Notes Problem Screening for malignant neoplasm of colon (534157015) Encounter for screening for malignant neoplasm of colon (Z12.11) Active confirmed Problem Screening for malignant neoplasm of rectum (629825226) Encounter for screening for malignant neoplasm of rectum (Z12.12) Active confirmed Problem Preprocedural examination (654100791879543) Preprocedural examination (Z01.818) Active confirmed Plan Of Treatment Future Test Test Name Order Date COLONOSCOPY 10/02/2015 Insurance Providers Payer Name Payer Address Payer Phone Subscriber Number Group Number Insured Name Patient Relationship to Insured Coverage Start Date Coverage End Date [employer] [address] [place] [phone] [id number] NANCY WADE Self - patient is the insured Medical (General) History Medical History History ICD Code Denies [place],DM,CVA,Lung disease,renal dise ase Negative colonoscopy at [facility] > 10 yrs ago--however, she reports that it was limited because her blood pressure dropped during the procedure Surgical History Surgery Date(Month/Year) tonsillectomy 1958 knee surgery 1967 thumb surgery 2009
--- OUTSIDE RECORDS SUMMARY | 2025-01-17 14:56 | XMS_ITS | Patient Health Record ---
[facility] Address [address] [place] [address] Care Team Providers Care Annealing Torch Operator Name Role Phone Lesley PORRAS, Cassia Castillo Primary Care Provider Un available BethanieIvette rebolledo Unavailable [phone] Allergies Allergen (clinical drug ingredient) Drug/Non Drug [...] Inc [address] [place] [address] [id number] Carl Forde Self - patient is the insured [facility] [address] [place] [address] [id number] Carl Forde Self - patient is the insured Medical (General) History Medical History History ICD Code Anxiety Arthritis CAD (Cholesterol) Measles Chicken pox Renal Cyst Uterine Fibroid Osteoporosis Renal Cysts, Aquired Uterine fibroids Surgical History Surgery Date(Month/Year) Tonsillectomy 1960 Left knee- Bone fragment removal 1967 Tubal Ligation 1987 Trigger Thumb 07/2007
== END 2025-01-17 12:10 | disposition home or self-care (01) ==
LOC: HO.MAMMO 12:09
PROVIDERS: PCP Internal Medicine; Visit Provider Internal Medicine
DX: M81.0 Age-related osteoporosis without current pathological fracture (principal); E55.9 Vitamin D deficiency, unspecified
CPT/HCPCS: 77080

== ENCOUNTER → 2025-01-17 12:30 | Outpatient (BNV) | payer MEDICARE, OTHER, SELFPAY | PROVIDERS: PCP Internal Medicine; Visit Provider Radiology Body Imaging | DX: E28.39 Other primary ovarian failure (principal) | CPT/HCPCS: 77080 ==

== ENCOUNTER 2025-02-05 07:33 | Outpatient (REF) | payer MEDICARE, OTHER, SELFPAY ==
--- OUTSIDE RECORDS SUMMARY | 2025-02-05 07:36 | XMS_ITS | Patient Health Record ---
[facility] Address [address] [place] [address] Care Team Providers Care Industrial Electrical Technician Name Role Phone Lesley PORRAS, Cassia Castillo Primary Care Provider Un available BethanieIvette rebolledo Unavailable [phone] Allergies Allergen (clinical drug ingredient) Drug/Non Drug [...] Inc [address] [place] [address] [id number] Carl Forde Self - patient is the insured [facility] [address] [facility] [place] [address] [phone] [id number] Carl Forde Self - patient is the insured Medical (General) History Medical History History ICD Code Anxiety Arthritis CAD (Cholesterol) Measles Chicken pox Renal Cyst Uterine Fibroid Osteoporosis Renal Cysts, Aquired Uterine fibroids Surgical History Surgery Date(Month/Year) Tonsillectomy 1960 Left knee- Bone fragment removal 1967 Tubal Ligation 1987 Trigger Thumb 07/2007
--- OUTSIDE RECORDS SUMMARY | 2025-02-05 07:36 | XMS_ITS | Patient Health Record ---
Author Organization [facility] Address [address] [place] [address] Care Team Providers Care Grant Manager Name Role Phone Lesley PORRAS, Cassia Primary Care Provider Werner Salcedo [phone] Allergies Allergen (clinical drug ingredient) Drug/Non Drug Allergy documented on EMR Reaction Allergy Type Onset Date Status amoxicillin Amoxicillin Unknown Drug Allergy Act long Reason For Referral No Information Social History Social History Additional Details Category Social Info Options Details Miscellaneous: Marital status: Occupation: Retired recently from [employer] Notes: Stopped smoking over 20 year s ago; no sig alcohol Problems Problem Type SNOMED Code ICD Code Onset Dates Problem Status W/U Status Risk Notes Problem Screening for malignant neoplasm of colon (919875726) Encounter for screening for malignant neoplasm of colon (Z12.11) Active confirmed Problem Screening for malignant neoplasm of rectum (083495612) Encounter for screening for malignant neoplasm of rectum (Z12.12) Active confirmed Problem Preprocedural examination (429571847327841) Preprocedural examination (Z01.818) Active confirmed Plan Of Treatment Future Test Test Name Order Date COLONOSCOPY 10/02/2015 Insurance Providers Payer Name Payer Address Payer Phone Subscriber Number Group Number Insured Name Patient Relationship to Insured Coverage Start Date Coverage End Date [employer] [address] [place] [phone] [id number] NANCY WADE Self - patient is the insured Medical (General) History Medical History History ICD Code Denies [place],DM,CVA,Lung disease,renal dise ase Negative colonoscopy at [facility] > 10 yrs ago--however, she reports that it was limited because her blood pressure dropped during the procedure Surgical History Surgery Date(Month/Year) tonsillectomy 1958 knee surgery 1967 thumb surgery 2009
[2025-02-05 12:01] LABS: Anion Gap 10 (12-20)
[2025-02-05 12:05] LABS: Alanine Aminotransferase 28 U/L (0-31); Albumin Level 4.6 g/dL (3.5-5.0); Alkaline Phosphatase 35 U/L (39-117); Aspartate Amino Transferase 31 U/L (5-31); Blood Urea Nitrogen 15 mg/dL (9-16); Calcium 9.6 mg/dL (8.4-10.2); Carbon Dioxide 29 mmol/L (22-29); Chloride 108 mmol/L (96-108); Estimated Glomerular Filt Rate > 60; Potassium 4.0 mmol/L (3.3-5.1); Sodium 143 mmol/L (135-145); Total Protein 7.1 g/dL (6.5-8.0)
== END 2025-02-05 07:34 | disposition home or self-care (01) ==
LOC: HO.HMGCLDS 07:33
PROVIDERS: PCP Internal Medicine; Visit Provider Student in an Organized Health Care Education/Training Program
DX: M81.0 Age-related osteoporosis without current pathological fracture (principal); E55.9 Vitamin D deficiency, unspecified
CPT/HCPCS: 36415; 80053; 82306

== ENCOUNTER 2025-02-13 10:07 | Outpatient (AMB) | payer MEDICARE, OTHER, SELFPAY ==
--- NOTE | 2025-02-13 10:18 | A.OFFVIS_ITS ---
Vital Signs 02/13/25 10:22 Height 4 ft 11 in Weight 104 lb 11.513 oz BMI 21.1 BP 130/74 Blood Pressure Location Lt brachial Position Sitting Pulse 78 Pulse Source Pulse Oximeter Pulse Oximetry (%) 100 Oxygen Delivery Method Room Air Intake Visit Reasons: Osteoporosis/Prolia Intake Note: Patient presents today for Osteoporosis and Prolia injection follow up and test results. Rand Maker Required: No Information Interpreted: non-clinical & clinical Accompanied by: Self / Same As Patient Allergies penicillin V Allergy (Unknown, Verified 02/13/25 10:21) diarrhea Medication List - Last Reconciled 02/13/25 by Luly Bradshaw MD acetaminophen ER (Tylenol Arthritis Pain) 650 mg PO Q12H calcium 600 mg PO BID cholecalciferol (vitamin D3) 2,000 units PO DAILY denosumab (Prolia) 60 mg subcut [id number] docusate sodium 100 mg PO DAILY rosuvastatin 5 mg PO 2XW 90 days HPI Comments Details: Patient is a 74-year-old female with hyperlipidemia, polyarticular osteoarthritis and osteoporosis here today for follow up Interval History: Patient last seen 08/15/24 with me - On Prolia 60mg SC every 6 months - Notes that on the day of Prolia injection she noted feeling very hot and itchy around her neck without any difficulty swallowing or associated rashes. - This resolved on its own. - This was her 3rd Prolia injection - Symptoms resolved in about 5 days - Never happened before - Since then had a fall on ice in the winter but did not fracture any bones Today - On Prolia 60mg SC every 6 months - No reactions after thelast Prolia injection - Doing well - Trying to do more exercises Rheumatologic History: Initial history: This is a 72 year old female who was referred by OBGYN for osteoporosis management. She was diagnosed with osteoporosis in 2020 and was started on alendronate. Her most recent DEXA scan shows drop in her bone density. Patient states that she has been having bilateral hand pain from arthritis for a few years now. She takes Tylenol which provides some relief. She reached menopause at age 54. Stated that her mother had osteoporosis and was on treatment for it. She denies recurrent falls. Current Rheumatology Medication(s): Prolia 60mg SC every 6 months Vit D 1000U daily PFSH Medical History Dyslipidemia Plantar fasciitis, bilateral Surgical History H/O: knee surgery Family History Brother WPW (Igiis-Qrqgzipnz-Gbwzk syndrome) Sister Atrial fibrillation Arthritis Mother Arthritis Social History Alcohol intake: current Alcohol intake frequency: holidays/special occasions only Patient Tobacco Use Status: Former Tobacco user e-Cigarette/Vaping Use: Never Used service: No Current occupational status: retired Cognitive needs: No Hearing needs: No Vision needs: Yes Review of Systems Narrative Review of Systems Constitutional: Denies fever, chills, weight loss ENT: Denies vision changes, eye pain or eye redness, dental caries, dry mouth GI: Denies nausea, vomiting, diarrhea, abdominal pain, change in BM Pulm: Denies SOB, RIGGINS, hemoptysis, wheezing Cards: Denies chest pain, palpitations Skin: Denies Raynaud's, rash, nail changes, photosensitivity, HOME DEMONSTRATION AGENT: Denies headaches, weakness, paresthesias, recurrent falls MSK: as per HPI All other systems reviewed and are unremarkable except noted above Physical Exam Exam Exam: Vital signs reviewed Physical Examination CONSTITUITIONAL Patient alert and cooperative. Well appearing and in no apparent painful distress MSK Hands * Right Hand: Able to make a fist. No swelling or tenderness to palpation of the MCPs, PIPs or DIPs. * Left Hand: Able to make a fist. No swelling or tenderness to palpation of the MCPs, PIPs or DIPs. * Herbedens nodes noted bilaterally Wrists * Right Wrist: Full ROM to flexion and extension. No swelling or TTP * Left Wrist: Full ROM to flexion and extension. No swelling or TTP Elbows * Right Elbow: Full ROM. No swelling or TTP. No TTP of the medial epicondyle. No TTP of the lateral epicondyle * Left Elbow: Full ROM. No swelling or TTP. No TTP of the medial epicondyle. No TTP of the lateral epicondyle Shoulders * Right shoulder: Full ROM. No swelling noted. No TTP of the AC joint. No TTP of the subacromial bursa. No TTP of the posterior shoulder * Left shoulder: Full ROM. No swelling noted. No TTP of the AC joint. No TTP of the subacromial bursa. No TTP of the posterior shoulder Knees * Right knee: Full ROM. No swelling noted. No TTP of the knee joint line. No TTP of pes anserine bursa * Left knee: Full ROM. No swelling noted. No TTP of the knee joint line. No TTP of pes anserine bursa. * Crepitations felt bilaterally Ankles * Right ankle: Good ankle dorsiflexion and plantar flexion. No swelling. No TTP of the ankle joint * Left ankle: Good ankle dorsiflexion and plantar flexion. No swelling. No TTP of the ankle joint Feet * Right foot: Negative squeeze test * Left foot: Negative squeeze test Tender points? * No tenderness to palpation of the bilateral trapezius, supraspinatus, anterior costochondral junctions, bilateral suboccipital muscle insertions SKIN No rashes Vital Signs: Last Vital Signs Pulse 78 02/13/25 10:22 BP 130/74 02/13/25 10:22 Pulse Ox 100 02/13/25 10:22 Oxygen Delivery Method Room Air 02/13/25 10:22 BMI result Body Mass Index 21.1 Office Meds Prolia 60 mg/mL subcutaneous syringe Performing Provider: Luly Bradshaw MD Performing Location: [facility] [place] Rheumatology-[facility] Administered by: Carley Lamb RN on 02/13/25 10:26 Dose Route Admin Location Dispensed Lot Number Expiration Date NDC [employer] 60 mg subcut left upper arm 1 mL [id number] 06/06/27 55751-347-00 [employer] EN Total Dispensed Waste 1 mL 0 % Results Reviewed Results Reviewed: Laboratory Tests 02/05/25 07:35 Sodium 143 Potassium 4.0 Chloride 108 Carbon Dioxide 29 BUN 15 Creatinine 0.69 AST 31 ALT 28 25-OH Vitamin D Total 84.8 DEXA 01/2025 FINDINGS: L1-L4 BMD: 0.929 g/cm2 L1-L4 T score: -2.1. This corresponds to osteopenia. This represents a 9.4* % increase in bone density compared with prior exam from October 29, 2022. Left femoral neck BMD: 0.603 g/cm2 Left femoral neck T score: -3.1. This corresponds to osteoporosis. Left total hip BMD: 0.579 g/cm2 Left total hip T score: -3.4. This corresponds to osteoporosis. This represents a 12.4* % increase in bone density compared with prior exam from October 29, 2022. * - Indicates a statistically significant change. Assessment & Plan Assessment & Plan (1) Osteoporosis: Comment: DEXA 10/2020: AP Spine -3.0, Left femur neck -3.4, Left femur total -3.7 DEXA 10/2022: AP Spine -2.8, Left femur neck -3.3, Left femur total -3.9 DEXA 01/2025: AP Spine -2.1, Left femur neck -3.1, Left femur total -3.4 fosomax 10/2020- 10/2022 DC due to worsening bone density Prolia 02/2023 Code(s): M81.0 - Age-related osteoporosis without current pathological fracture Category: Medical Qualifiers: Osteoporosis type: age-related Presence of current pathological fracture: without current pathological fracture Qualified Code(s): M81.0 - Age- related osteoporosis without current pathological fracture Plan: #Osteoporosis Patient is a 74-year-old female with osteoporosis here today for follow up. 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 Mild increased risk of infections due to RANKL on T helper cells, increased risk of hypocalcemia especially in CKD patients Keep vitamin-D at least 35 ng/mL Advised to delay non emergent dental procedures to toward the end of the 6 month cycle and if they plan to stop denosumab would need to continue antiresorptive to maintain the effects of denosumabe Plan I spent 20 minutes reviewing the record and labs, taking a history, examining the patient, discussing the treatment plan, ordering diagnostic work up and documenting in the medical record Orders: Orders AMB Denosumab Injection Practice Supplied Today M81.0 - Age-related osteoporosis without current pathological fracture Comprehensive Met. Panel 6 Months M81.0 - Age-related osteoporosis without current pathological fracture Vitamin D 25-OH Total 6 Months M81.0 - Age-related osteoporosis without current pathological fracture Coding Level of Care Code Est Pt Level 3 (13292) Complex visit Add On G2211 Diagnoses Age-related osteoporosis without current pathological fracture M81.0 Osteoporosis type: age-related Presence of current pathological fracture: without current pathological fracture Encounter for monitoring denosumab therapy Z51.81; Z79.620
[2025-02-13 10:22] VITALS: BP 130/74; PULSE 78; O2SAT 100; BMI 21.1
== END 2025-02-13 10:47 | disposition home or self-care (01) ==
LOC: HO.RHES 10:09
PROVIDERS: PCP Internal Medicine; Visit Provider Student in an Organized Health Care Education/Training Program
DX: M81.0 Age-related osteoporosis without current pathological fracture (principal); Z51.81 Encounter for therapeutic drug level monitoring; Z79.620 Long term (current) use of immunosuppressive biologic
CPT/HCPCS: 99213; G2211

== ENCOUNTER → 2025-02-13 10:07 | Outpatient (BNVA) | payer MEDICARE, OTHER, SELFPAY | PROVIDERS: PCP Internal Medicine; Visit Provider Student in an Organized Health Care Education/Training Program | DX: M81.0 Age-related osteoporosis without current pathological fracture (principal); Z51.81 Encounter for therapeutic drug level monitoring; Z79.620 Long term (current) use of immunosuppressive biologic | CPT/HCPCS: 96372; 99212; J0897 ==